=== PATIENT | female | born 1965 | race Caucasian/White ===

== ENCOUNTER 2020-05-29 07:02 | Outpatient (CLI) | payer BC, SELFPAY ==
[2020-05-29 08:10] LABS: Alanine Aminotransferase 35 U/L (14-59); Aspartate Amino Transferase 26 U/L (15-37)
== END 2020-05-29 07:03 | disposition home or self-care (01) ==
PROVIDERS: PCP Internal Medicine; Visit Provider Internal Medicine
DX: Z79.899 Other long term (current) drug therapy (principal)
CPT/HCPCS: 36415; 84450; 84460

== ENCOUNTER 2021-10-10 07:09 | Outpatient (CLI) | payer BC, SELFPAY ==
--- NOTE | ~2021-10-10 | CT_ITS ---
EXAMINATION: CT abdomen pelvis w con DATE: 10/10/2021 07:52 INDICATION: Intermittent abdominal pain and bloating. Prior cholecystectomy and hysterectomy. TECHNIQUE: Computed tomography (CT) of the abdomen and pelvis was performed with 100 cc Omnipaque 350 intravenous contrast. The dose-length product was 717.48 mGy-cm. Automated exposure control and iter ative reconstruction technique were employed. COMPARISON: CT dated 03/29/2010. FINDINGS: Lung bases are unremarkable. No significant pleural or pericardial effusion. Heart size is normal. No significant vascular abnormality. No lymphadenopathy. Fatty infiltration of the liver. There are cholecystectomy clips. There is an enlarging 6.5 cm right renal cyst at the upper pole. No hydronephrosis. Left kidney is normal. Nonobstructive bowel gas karen gui. No free air or free fluid. Uterus is surgically absent. Moderate lumbar spondylosis. No acute os seous abnormality. IMPRESSION: 1. No findings to account for patient's symptoms. No acute abnormality. Reviewed, dictated and finalized at location B.
== END 2021-10-10 07:10 | disposition home or self-care (01) ==
LOC: CHSIMG 07:11
PROVIDERS: PCP Internal Medicine; Visit Provider Internal Medicine
DX: R10.9 Unspecified abdominal pain (principal)
CPT/HCPCS: 74177; Q9967

== ENCOUNTER 2021-12-02 15:57 | Emergency (ER) | payer BC, SELFPAY ==
--- NOTE | ~2021-12-02 | XR_ITS ---
EXAM: XR hand LT min 3V HISTORY: pain and swelling after fall COMPARISON: None available FINDINGS: Normal mineralization. No fracture or dislocation. No lytic or blastic lesion. Mild degene rative change. No erosion or periosteal change. Soft tissues within normal limits. IMPRESSION: No acute osseous finding in the left hand. Reviewed, dictated and finalized at location K.
--- NOTE | ~2021-12-02 | CT_ITS ---
EXAMINATION: CT facial bones wo con DATE: 12/02/2021 18:20 INDICATION: pain after fall . TECHNIQUE: Computed tomography (CT) of the facial bones and maxillofacial region was performed withou t intravenous contrast. Automated exposure control and iterative reconstruction technique were employ ed. The dose-length product was 605.33 mGy-cm. COMPARISON: None. FINDINGS: Soft Tissues: Soft tissue thickening over the bridge of the nose, no other significant superficial s oft tissue swelling. Facial bones: Comminuted impacted nasal bone fractures. No other fractures detected.. No lytic or bl astic process. Eyes: The globes are intact. The soft tissue planes of the orbits are maintained. Paranasal Sinuses: The visualized aerated spaces are clear. Foreign Bodies: No radiopaque foreign bodies. Other Findings: None. IMPRESSION: Presumed acute comminuted, impacted nasal bone fractures. Reviewed, dictated and finalized at location K.
--- NOTE | ~2021-12-02 | XR_ITS ---
EXAM: XR knee LT 2V HISTORY: pain and swelling after fall COMPARISON: None available FINDINGS: Normal mineralization. No fracture or dislocation. No lytic or blastic lesion. Joint space s maintained. No erosion or periosteal change. Soft tissues within normal limits. Small left knee jacqueline nt effusion. IMPRESSION: No acute osseous finding in the left knee. Reviewed, dictated and finalized at location K.
--- NOTE | ~2021-12-02 | CT_ITS ---
EXAMINATION: CT brain wo con DATE: 12/02/2021 18:19 INDICATION: pain after fall TECHNIQUE: Computed tomography (CT) of the head was performed without intravenous contrast. The mA wa s adjusted according to patient size. Iterative reconstruction technique was employed. The dose-lengt h product was 605.33 mGy-cm. COMPARISON: None FINDINGS: No acute intracranial hemorrhage or extra-axial fluid collection. No hydrocephalus, mass, or herniation. No acute ischemic infarct. Unremarkable dural venous sinus attenuation. Comminuted impacted nasal bone fractures of uncertain age, no other acute osseous abnormality. The aerated spaces are clear. Mild chronic white matter change. Mild intracranial arterial calcifications. IMPRESSION: No acute intracranial process. Presumed acute impacted nasal bone fracture. Reviewed, dictated and finalized at location K.
[2021-12-02 17:30] VITALS: BP 131/86; PULSE 86; RESP 20; TEMP 36.6; O2SAT 98
--- NOTE | 2021-12-02 18:09 | ED.GENADULT ---
HPI - General Adult General Chief complaint: Fall Stated complaint: fell-knee, hand, nasal pain Source: patient and family Mode of arrival: ambulatory Limitations: no limitations History of Present Illness HPI narrative: Pablo is a 55F that tripped over a tricycle before coming to the emergency department. She fell on her left wrist, left knee and face. There was no LOC and she denies any neck pain. There were no other injuries. Review of Systems Constitutional: Constitutional: Reports no additional constitutional complaints Eyes: Eyes: Reports no additional eye complaints ENT: Reports system reviewed and no additional complaints, except as documented Cardiovascular: Cardiovascular: Reports no additional cardiovascular complaints Respiratory: Respiratory: Reports no additional respiratory complaints Gastrointestinal: Gastrointestinal: Reports no additional gastrointestinal complaints Genitourinary: Genitourinary: Reports no additional female genitourinary complaints Musculoskeletal: Musculoskeletal: Reports as per HPI Integumentary/Breasts: Skin/Breast: Reports system reviewed and no additional complaints, except as docu Neurologic: Reports system reviewed and no additional complaints, except as documented Psychiatric: Psychiatric: Reports no additional psychiatric complaints Endocrine: Endocrine: Reports no additional endocrine complaints Hematologic/Lymphatic: Hematologic/Lymphatic: Reports no additional hematologic/lymphatic complaints Allergic/Immunologic: Allergic/Immunologic: Reports no additional allergic/immunologic complaints Exam Const: General: no acute distress and alert Orientation/consciousness: patient oriented x3 Limitations: No altered mental status HENMT: Other: A few small shallow abrasions on her forehead and cheeks. No crepitus. Eyes: Conjunctivae: conjunctivae normal Pupils: Equal, round and reactive pupils present Neck: Neck: normal visual inspection Chest: Chest palpation & inspection: normal inspection of the chest Resp: Effort & Inspection: normal respiratory effort Cardio: Rate: regular rate GI: Inspection: non-distended GI Palp: Yes Soft to palpation, No Tenderness to palpation present (GI) and No Guarding due to palpation present (GI) : General: Yes no CVA tenderness Skin: General skin exam: normal color Rashes: no rashes Neuro: General: patient oriented x3, moves all extremities and no focal motor deficits Extrem: Other: Quarter sized abrasion on the left knee but no varus/valgus laxity, negative anterior/posterior drawer test Left hand was TTP in the hand but the wrist had a fair amount of bruising Psych: Mental Status: mental status grossly normal Course Course Emergency Course: Given Tylenol for pain EXAMINATION: CT facial bones wo con DATE: 12/02/2021 18:20 INDICATION: pain after fall . TECHNIQUE: Computed tomography (CT) of the facial bones and maxillofacial region was performed without intravenous contrast. Automated exposure control and iterative reconstruction technique were employed. The dose-length product was 605.33 mGy-cm. COMPARISON: None. FINDINGS: Soft Tissues: Soft tissue thickening over the bridge of the nose, no other significant superficial soft tissue swelling. Facial bones: Comminuted impacted nasal bone fractures. No other fractures detected.. No lytic or blastic process. Eyes: The globes are intact. The soft tissue planes of the orbits are maintained. Paranasal Sinuses: The visualized aerated spaces are clear. Foreign Bodies: No radiopaque foreign bodies. Other Findings: None. IMPRESSION: Presumed acute comminuted, impacted nasal bone fractures. EXAMINATION: CT brain wo con DATE: 12/02/2021 18:19 INDICATION: pain after fall TECHNIQUE: Computed tomography (CT) of the head was performed without intravenous contrast. The mA was adjusted according to patient size. Iterative reconstruction technique was employed. The dose-length prod
[2021-12-02] MEDS: ACETAMINOPHEN 500 MG TABLET 1000 MG PO (18:39)
[2021-12-02 18:41] VITALS: BP 127/83; PULSE 85; RESP 18; TEMP 36.6; O2SAT 100
== END 2021-12-02 18:50 | disposition home or self-care (01) ==
PROVIDERS: Emergency Provider Family Medicine; PCP Internal Medicine
DX: S02.2XXA Fracture of nasal bones, initial encounter for closed fracture (principal); W01.0XXA Fall on same level from slipping, tripping and stumbling without subsequent striking against object, initial encounter
CPT/HCPCS: 70450; 70486; 73130; 73560; 99284

== ENCOUNTER 2022-03-28 07:17 | Outpatient (CLI) | payer BC, SELFPAY ==
--- NOTE | ~2022-03-28 | MM_ITS ---
EXAMINATION: MM screening radha BI w danita HISTORY: Screening mammogram TECHNIQUE: Craniocaudal and mediolateral oblique 3-D tomosynthesis images were obtained and synthetic 2-D images were generated. CAD analysis was submitted and interpreted. COMPARISON: 05/10/2019 diagnostic right mammogram and limited right breast ultrasound examination 12/04/2016, 07/07/2013 bilateral screening mammogram examinations BREAST PARENCHYMAL COMPOSITION: The breasts are almost entirely fatty. FINDINGS: There is no evidence of suspicious mass, calcification, or architectural distortion to sugg est malignancy in either breast. There has been no suspicious interval change. IMPRESSION: 1. No mammographic evidence of malignancy. 2. Recommend routine screening mammography in one year. BI-RADS Category 1: Negative Reviewed, dictated and finalized at location B.
== END 2022-03-28 07:18 | disposition home or self-care (01) ==
LOC: CHSIMG 07:20
PROVIDERS: PCP Internal Medicine; Visit Provider Internal Medicine
DX: Z12.31 Encounter for screening mammogram for malignant neoplasm of breast (principal)
CPT/HCPCS: 77063; 77067

== ENCOUNTER → 2022-05-02 08:13 | Outpatient (CLI) | payer BC, SELFPAY ==
--- NOTE | ~2022-05-02 | MR_ITS ---
EXAMINATION: MR knee LT wo con DATE: 05/02/2022 08:53 INDICATION: Anterior left knee pain TECHNIQUE: Magnetic resonance imaging (MRI) of the left knee was performed without intravenous contra st. Sequences included coronal PD-weighted FSE, coronal PD-weighted FS FSE, sagittal T2-weighted FSE , sagittal PD-weighted FS FSE and axial PD weighted fat saturated FSE. COMPARISON: None. FINDINGS: Medial compartment: Medial meniscus is normal. Mild partial-thickness cartilage loss with subtle chondral surface regular ity along the anterior to central weightbearing medial femoral condyle. Mild partial-thickness cartil age loss with smooth chondral surface along the medial tibial plateau. Lateral compartment: Lateral meniscus is normal. Mild partial-thickness cartilage loss along the lateral femoral condyle w ith subtle chondral surface regularity anteriorly. Mild partial-thickness cartilage loss with smooth chondral surface along the lateral tibial plateau. Patellofemoral compartment: Region of full/near full-thickness cartilage loss at the central aspect of the patellar apical ridge and lateral patellar facet with a couple tiny foci of mild subarticular edema-like signal change. Par tial-thickness cartilage loss without degenerative subchondral changes at the central aspect of the m edial trochlea and trochlear groove. Diffuse partial thickness cartilage loss with smooth chondral mckenzie rface along the lateral trochlea. Ligaments and tendons: Posterior cruciate ligament is normal. The anterior cruciate ligament demonstrates a normal angle rel ative to Blumensaat line. It appears thickened with small intrasubstance ganglion cysts and increased intrasubstance signal surrounding intact appearing linear fibers with a celery stalk appearance. Intrasubstance ganglion cyst extending along a longitudinal split tear of the posterior aspect of the proximal medial collateral ligament. The fibular collateral ligament complex is normal. The extensor mechanism is normal. The visualized medial and lateral hamstring tendons as well as the iliotibial b and are normal. Fluid: Small left mild joint effusion. No loose osteochondral bodies identified. Small Juan's cyst measurin g 4.2 x 1.8 x 0.8 cm. Osseous/other: Bone alignment is normal. Normal marrow aside from the previous noted mild reticular edema-like signa l change at the patella. No fracture or pathologic marrow replacing process. IMPRESSION: 1. 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 2. Mucoid degeneration of the anterior cruciate ligament without discrete tear. Correlate with physic al exam to assess for degree of residual functional integrity. 3. Intrasubstance ganglion cyst extending along a longitudinal split tear at the posterior aspect of the proximal medial collateral ligament. 4. Small left knee joint effusion with small Juan's cyst. Reviewed, dictated and finalized at location A. IMPRESSION: 1. Mild tricompartmental osteoarthritis with high-grade chondral malacia the pa tella and moderate grade chondromalacia at the trochlea and at both sides of th e medial and lateral compartments. 2. Mucoid degeneration of the anterior cruciate ligament without discrete tear. Correlate with physical exam to assess for degree of residual functional integ rity. 3. Intrasubstance ganglion cyst extending along a longitudinal split tear at th e posterior aspect of the proximal medial collateral ligament. 4. Small left knee joint effusion with small Juan's cyst.
== END ==
PROVIDERS: PCP Internal Medicine; Visit Provider Internal Medicine
DX: M25.562 Pain in left knee (principal); M17.12 Unilateral primary osteoarthritis, left knee; M94.262 Chondromalacia, left knee; M67.462 Ganglion, left knee; S83.412A Sprain of medial collateral ligament of left knee, initial encounter; M25.462 Effusion, left knee; M71.22 Synovial cyst of popliteal space [Baker], left knee
CPT/HCPCS: 73721

== ENCOUNTER 2022-05-22 08:19 | Outpatient (RCR) | payer BC, SELFPAY ==
--- NOTE | 2022-05-22 09:55 | PTOPEVAL1 ---
Assessment and note entered by JT File, PT Evaluation Information Assessment Status Evaluation Diagnosis L anterior knee pain, PF OA, lateral meniscus tear , IT band tendonitis Onset 11/25/21 Subjective Information patient reports she has been having pain in the L knee since a fall back in november of this year. she reports she landed on the outside of her L knee. she reports since then it has progressively gotten worse. she reports she had an MRI that found arthritis, PF OA, IT band tendonitis, and a lateral meniscus tear among other things. she reports she has increased pain with standing or walking for an extended period of time (1 hour or more). 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 she reports thus far she has had tried arthritis meds and an injection to the L knee. she reports since her injection last friday she has noticed some improvement. Reported Pain Level Pain Score 2: Self Report Assessment PT Clinical Summary mrs. noel presents to skilled PT services for evaluation and treatment of L knee pain following a fall back in november of this year. she presents this date with signs and symptoms of knee/PF OA and ITB/hamstrings tendonitis. she displays generalized LE weakness, abnormal squat mechanics, and decreased activity endurance/tolerance. she would do well to attend skilled PT to improve her objective/funcitonal deficits and progress towards a return to her prior level funcitonal activity performance and quality of life. Plan of Care Interventions Electrical Stimulation,Gait Training,Hot Pack/Cold Pack,Manual Therapy,Neuro Re-education,Patient/ Caregiver Educati,Therapeutic Activities, Therapeutic Exercise PT Services Indicated Yes Treatment Frequency and 2x weekly for 10 visits Duration These treatments will address the objective and functional deficits as defined above. The patient will be advanced safely and appropriately in order for the patient to progress towards his/her prior level of function. Additional exercises will be introduced and as well as a comprehensive home exercise program upon discharge, if needed, ?to ensure carryover of functional gains achieved in the clinic. This treatment plan has been reviewed and agreement upon by the patient.
== END 2022-06-24 23:59 | disposition home or self-care (01) ==
LOC: CHSPT 08:19
PROVIDERS: Visit Provider Orthopaedic Surgery
DX: M17.12 Unilateral primary osteoarthritis, left knee (principal)
CPT/HCPCS: 97110; 97140; 97161; 97530

== ENCOUNTER → 2022-05-27 08:40 | Outpatient (CLI) | payer BC, SELFPAY ==
--- NOTE | ~2022-05-27 | DEXA_ITS ---
Bone Density Report Name: ARTEM ANTON Age: 56 Sex: Female Ethnicity: White Date of : 1965 Indication: postmenopausal; screening for osteoporosis; hysterectomy; rheumatoid arthritis; Referring Provider: Luigi Jeffries Study: Bone densitometry was performed. Exam Date: May 27, 2022 Accession number: [id number] Bone Density: Region BMD T-score Z-score Classification AP Spine (L1-L4) 0.950 -0.9 0.4 Normal Femoral Neck (Left) 0.735 -1.0 0.1 Normal Total Hip (Left) 0.842 -0.8 0.0 Normal Femoral Neck (Right) 0.745 -0.9 0.2 Normal Total Hip (Right) 0.830 -0.9 -0.1 Normal Total Hip Mean 0.836 -0.9 -0.1 Normal World Health Organization criteria for BMD impression classify patients as: Normal (T-score at or above -1.0), Osteopenia (T-score between -1.0 and -2.5), or Osteoporosis (T-score at or below -2.5). 10-year Fracture Risk: FRAX not reported because: All T-scores for Spine Total, Hip Total, Femoral Neck at or above -1.0 Treated for osteoporosis Clinical Information Provided by Patient: Has rheumatoid arthritis Is being treated for osteoporosis Has used the following medications: Actonel (i.e. risedronate), Vitamin D, Calcium Has the following medical conditions: Hysterectomy Patient maximum height was 65 Menopause Age: 32 Drinks caffeinated beverages Onset of menses at age 11 Number of children 4 Impression: The patient has normal bone mass. Discussion: It is important to ask patients whether they are taking their medications and to encourage continued and appropriate compliance with their osteoporosis therapies to reduce fracture risk. It is also important to review their risk factors and encourage appropriate calcium and vitamin D intakes, exercise, fall prevention and other lifestyle measures. Follow-Up: Consider a repeat BMD and Vertebral Fracture Assessment (VFA) exam in 2 years or sooner if medically necessary, to reassess this patient's status. Reported by: SHABBIR on 05/27/2022 8:59:00 AM. Reviewed, dictated and finalized at location A. LAISHA
== END ==
PROVIDERS: PCP Internal Medicine; Visit Provider Internal Medicine
DX: Z78.0 Asymptomatic menopausal state (principal)
CPT/HCPCS: 77080

== ENCOUNTER 2023-04-01 07:22 | Outpatient (CLI) | payer BC, SELFPAY ==
--- NOTE | ~2023-04-01 | MM_ITS ---
EXAMINATION: MM screening radha BI w danita HISTORY: Screening mammogram TECHNIQUE: Craniocaudal and mediolateral oblique 3-D tomosynthesis images were obtained and synthetic 2-D images were generated. CAD analysis was submitted and interpreted. COMPARISON: 03/28/2022 bilateral screening mammogram 05/10/2019 diagnostic right mammogram and limited right breast ultrasound 04/22/2019 bilateral screening mammogram BREAST PARENCHYMAL COMPOSITION: The breasts are almost entirely fatty. FINDINGS: There is no evidence of suspicious mass, calcification, or architectural distortion to sugg est malignancy in either breast. There has been no suspicious interval change. IMPRESSION: 1. No mammographic evidence of malignancy. 2. Recommend routine screening mammography in one year. BI-RADS Category 1: Negative Reviewed, dictated and finalized at location A.
== END 2023-04-01 07:23 | disposition home or self-care (01) ==
LOC: CHSIMG 07:25
PROVIDERS: PCP Internal Medicine; Visit Provider Internal Medicine
DX: Z12.31 Encounter for screening mammogram for malignant neoplasm of breast (principal)
CPT/HCPCS: 77063; 77067

== ENCOUNTER 2023-06-16 00:17 | Day surgery (SDC) | payer BC, SELFPAY ==
[2023-06-03 16:43] VITALS: BMI 32.4
--- NOTE | 2023-06-13 10:54 | SUR.PREOP ---
Patient called regarding upcoming procedure. Reviewed preop instructions, appointment times, and procedure prep.
[2023-06-16 11:20] VITALS: BP 130/77; PULSE 94; RESP 18; TEMP 36.8; O2SAT 100; BMI 31.6
--- NOTE | 2023-06-16 11:25 | P.PNAN_ITS ---
Anes - Initial Pre Proc Eval Procedure: Operation Date: 06/16/23 12:30 Proposed Procedures p Colonoscopy - Emerson Manriquez MD Date/Time: 06/16/23 11:25 Surgeon: Emerson Manriquez MD Pre Op Diagnosis: change in bowel habits, constipation unspecified Patient Data Age: 57 Gender: F Height: 1.65 m Weight: 86.1 kg Last Vital Signs Temp 98.3 F 06/16/23 11:20 Pulse 94 06/16/23 11:20 Resp 18 06/16/23 11:20 BP 130/77 06/16/23 11:20 Pulse Ox 100 06/16/23 11:20 O2 Del Method Room Air 06/16/23 11:20 Allergies Allergy/AdvReac Type Severity Reaction Status Date / Time tramadol AdvReac Mild Nausea Verified 06/16/23 11:18 Home Medications Medication Instructions Recorded Confirmed Type atorvastatin 10 mg tablet 10 mg PO DAILY 05/19/23 06/16/23 History cyclobenzaprine 10 mg tablet 10 mg PO TID PRN Spasms 05/19/23 06/16/23 History famotidine 20 mg tablet (Pepcid) 20 mg PO QHS 1 month #30 tabs 05/19/23 06/16/23 Rx pantoprazole 40 mg tablet,delayed 40 mg PO DAILY 05/19/23 06/16/23 History release Adults Multivitamin 1 tab-cap PO DAILY 06/03/23 06/16/23 History Vitamin D3 1 cap PO DAILY 06/03/23 06/16/23 History calcium carbonate 600 mg calcium 600 mg PO DAILY 06/03/23 06/16/23 History (1,500 mg) tablet (Calcium) Patient hx anesthesia problems: none Family hx anesthesia problems: none Results Review: All pre-operative results and documents have been reviewed as part of the pre- operative evaluation. [facility] Past Medical History Medical History (Updated 05/19/23 @ 09:05 by CHAI Godinez) Change in bowel habits Constipation GERD (gastroesophageal reflux disease) Obese Surgical History Surgical History (Updated 05/19/23 @ 08:20 by Leah Christopher MA) H/O: hysterectomy History of cholecystectomy Family History Family History (Updated 05/19/23 @ 08:20 by Leah Christopher MA) Father Skin cancer Mother Hypertension Hyperlipidemia Renal carcinoma Social History Social History (Updated 05/19/23 @ 08:29 by Leah Christopher MA) Smoking status: Never smoker Second hand tobacco smoke exposure: No Alcohol intake: current Substance use: never Substance use type: does not use Living arrangements: with family Spiritual care concerns: No Anes - Eval Final PreProcedure Day of Procedure 06/16/23 11:25 Patient weight: obese Heart: regular rate and rhythm Lungs: clear to auscultation Airway: Mallampati scale class II Neurological: alert and oriented Last oral intake: >/= 8 hours ASA classification: II Emergent: no Anesthetic plan: proceed Anesthesia type and monitoring: general GIVS and standard monitoring Results Review: All pre-operative results and documents have been reviewed as part of the pre- operative evaluation. Informed Consent: The patient's anesthetic plan and its attendant risks and benefits were discussed with the patient/family/POA. Questions were solicited and answers provided to the satisfaction of the patient/family/POA.
[2023-06-16] MEDS: LACTATED RINGERS 1,000 ML 150 ML IV CONT (11:32)
--- NOTE | 2023-06-16 11:41 | WPDHPUPDATE1 ---
History and Physical Update Update Date/Time: 06/16/23 11:41 History and Physical has been reviewed, including an updated exam of the patient. There are NO changes in the patient's condition. Risks, benefits, and alternatives have been discussed and questions answered. Patient agrees to proceed with procedure.
[2023-06-16 11:58] VITALS: BP 110/69; PULSE 98; RESP 25; O2SAT 98
[2023-06-16 12:08] VITALS: BP 118/73; PULSE 90; RESP 22; O2SAT 99
[2023-06-16 12:18] VITALS: BP 122/84; PULSE 84; RESP 23; O2SAT 100
== END 2023-06-16 12:26 | disposition home or self-care (01) ==
PROVIDERS: PCP Internal Medicine; Visit Provider Internal Medicine Gastroenterology
PROC: 0DJD8ZZ Inspection of Lower Intestinal Tract, Via Natural or Artificial Opening Endoscopic (ICD-10-PCS; CPT 45378; principal; 2023-06-16 12:30)
DX: Z12.11 Encounter for screening for malignant neoplasm of colon (principal); D12.3 Benign neoplasm of transverse colon; K64.8 Other hemorrhoids; K21.9 Gastro-esophageal reflux disease without esophagitis; E78.00 Pure hypercholesterolemia, unspecified; K58.1 Irritable bowel syndrome with constipation; E66.9 Obesity, unspecified; Z68.31 Body mass index [BMI] 31.0-31.9, adult; Z90.49 Acquired absence of other specified parts of digestive tract; Z84.0 Family history of diseases of the skin and subcutaneous tissue; Z80.51 Family history of malignant neoplasm of kidney
CPT/HCPCS: 45380; 88305; J2704; J7120

== ENCOUNTER 2023-08-04 00:34 | Day surgery (SDC) | payer BC, SELFPAY ==
--- NOTE | 2023-08-01 09:57 | SUR.PREOP ---
Patient called regarding upcoming procedure. Reviewed preop instructions, appointment times, and procedure prep.
[2023-08-01 11:43] VITALS: BMI 32.4
--- NOTE | 2023-08-03 11:12 | PM.HPGS ---
History of Present Illness History of Present Illness Consent: Risks, benefits, and alternatives have been discussed and questions answered. Patient agrees to proceed with procedure. Chief complaint: GERD,Abdominal distension (gaseous) Narrative: Pablo Alvarado is a 57 year old female With long history of acid reflux which has been symptomatic despite aggressive attempts of therapy. She has had previous endoscopies conferring acid reflux. She has taken omeprazole in the past without benefit. She frequently has breakthrough of heartburn and also at times will have what she calls gurgling and regurgitation if she lies on her right side at night. She has been switched from pantoprazole to AcipHex 20 mg b.i.d. Review of Systems Review of Systems: All systems reviewed & are unremarkable except as noted in HPI and below PMFSH Past Medical History Medical History Bloating symptom Change in bowel habits Constipation GERD (gastroesophageal reflux disease) Obese Surgical History Surgical History H/O: hysterectomy History of cholecystectomy Family History Family History Father Skin cancer Mother Hypertension Hyperlipidemia Renal carcinoma Social History Social History Smoking status: Never smoker Second hand tobacco smoke exposure: No Alcohol intake: current Substance use: never Substance use type: does not use Living arrangements: other Additional living arrangements comments: with sp Spiritual care concerns: No Meds Home Medications and Allergies Home Medications Medication Instructions Recorded Confirmed Type atorvastatin 10 mg tablet 10 mg PO DAILY 05/19/23 08/04/23 History cyclobenzaprine 10 mg tablet 10 mg PO TID PRN Spasms 05/19/23 08/04/23 History famotidine 20 mg tablet (Pepcid) 20 mg PO QHS 1 month #30 tabs 05/19/23 08/04/23 Rx Adults Multivitamin 1 tab-cap PO DAILY 06/03/23 08/04/23 History Vitamin D3 1 cap PO DAILY 06/03/23 08/04/23 History calcium carbonate 600 mg calcium 600 mg PO DAILY 06/03/23 08/04/23 History (1,500 mg) tablet (Calcium) lactulose 20 gram/30 mL oral 20 g (30 mL) PO BID PRN 07/15/23 08/04/23 Rx solution constipation #1,200 mL lubiprostone 24 mcg capsule 24 mcg PO BID 1 month #60 caps 08/01/23 08/04/23 Rx rabeprazole 20 mg tablet,delayed 20 mg PO BID 1 month #60 tabs 08/01/23 08/04/23 Rx release (AcipHex) Allergies Allergy/AdvReac Type Severity Reaction Status Date / Time tramadol AdvReac Mild Nausea Verified 08/04/23 10:35 Exam Const: General: alert Orientation/consciousness: patient oriented x3 Resp: Auscultation: clear to auscultation bilaterally Cardio: Rhythm: regular rhythm GI: GI Palp: Yes Soft to palpation and No Tenderness to palpation present (GI) Neuro: General: patient oriented x3 Assessment and Plan Assessment and plan (1) GERD (gastroesophageal reflux disease): Code(s): K21.9 - Gastro-esophageal reflux disease without esophagitis Status: Acute Assessment and Plan: EGD with possible biopsy or dilatation or cautery.
[2023-08-04 10:38] VITALS: BP 129/78; PULSE 93; RESP 16; TEMP 36.6; O2SAT 99
[2023-08-04] MEDS: LACTATED RINGERS 1,000 ML 150 ML IV CONT (10:42)
--- NOTE | 2023-08-04 11:09 | WPDANESEPPF ---
Anes - Initial Pre Proc Eval Procedure: Operation Date: 08/04/23 11:30 Proposed Procedures p Esophagogastroduodenoscopy - Luke Rees MD Date/Time: 08/04/23 11:09 Surgeon: Luke Rees MD Pre Op Diagnosis: GERD,Abdominal distension (gaseous) Patient Data Age: 57 Gender: F Height: 1.65 m Weight: 87.7 kg Last Vital Signs Temp 98 F 08/04/23 10:38 Pulse 93 08/04/23 10:38 Resp 16 08/04/23 10:38 BP 129/78 08/04/23 10:38 Pulse Ox 99 08/04/23 10:38 O2 Del Method Room Air 08/04/23 10:38 Allergies Allergy/AdvReac Type Severity Reaction Status Date / Time tramadol AdvReac Mild Nausea Verified 08/04/23 10:35 Home Medications Medication Instructions Recorded Confirmed Type atorvastatin 10 mg tablet 10 mg PO DAILY 05/19/23 08/04/23 History cyclobenzaprine 10 mg tablet 10 mg PO TID PRN Spasms 05/19/23 08/04/23 History famotidine 20 mg tablet (Pepcid) 20 mg PO QHS 1 month #30 tabs 05/19/23 08/04/23 Rx Adults Multivitamin 1 tab-cap PO DAILY 06/03/23 08/04/23 History Vitamin D3 1 cap PO DAILY 06/03/23 08/04/23 History calcium carbonate 600 mg calcium 600 mg PO DAILY 06/03/23 08/04/23 History (1,500 mg) tablet (Calcium) lactulose 20 gram/30 mL oral 20 g (30 mL) PO BID PRN 07/15/23 08/04/23 Rx solution constipation #1,200 mL lubiprostone 24 mcg capsule 24 mcg PO BID 1 month #60 caps 08/01/23 08/04/23 Rx rabeprazole 20 mg tablet,delayed 20 mg PO BID 1 month #60 tabs 08/01/23 08/04/23 Rx release (AcipHex) Patient hx anesthesia problems: none Family hx anesthesia problems: none Results Review: All pre-operative results and documents have been reviewed as part of the pre-operative evaluation. [facility] Past Medical History Medical History (Updated 07/15/23 @ 09:04 by CHAI Godinez) Bloating symptom Change in bowel habits Constipation GERD (gastroesophageal reflux disease) Obese Surgical History Surgical History H/O: hysterectomy History of cholecystectomy Family History Family History Father Skin cancer Mother Hypertension Hyperlipidemia Renal carcinoma Social History Social History Smoking status: Never smoker Second hand tobacco smoke exposure: No Alcohol intake: current Substance use: never Substance use type: does not use Living arrangements: other Additional living arrangements comments: with sp Spiritual care concerns: No Anes - Eval Final PreProcedure Day of Procedure 08/04/23 11:09 Patient weight: obese Heart: regular rate and rhythm Lungs: clear to auscultation Airway: Mallampati scale class II Neurological: alert and oriented Last oral intake: >/= 8 hours ASA classification: II Emergent: no Anesthetic plan: proceed Anesthesia type and monitoring: general GIVS and standard monitoring Results Review: All pre-operative results and documents have been reviewed as part of the pre-operative evaluation. Informed Consent: The patient's anesthetic plan and its attendant risks and benefits were discussed with the patient/family/POA. Questions were solicited and answers provided to the satisfaction of the patient/family/POA.
[2023-08-04 12:04] VITALS: BP 126/84; PULSE 85; RESP 24; O2SAT 99
[2023-08-04 12:14] VITALS: BP 131/84; PULSE 84; RESP 23; O2SAT 100
[2023-08-04 12:24] VITALS: BP 139/90; PULSE 84; RESP 18; O2SAT 100
== END 2023-08-04 12:41 | disposition home or self-care (01) ==
PROVIDERS: PCP Internal Medicine; Visit Provider Internal Medicine Gastroenterology
PROC: 0DJ08ZZ Inspection of Upper Intestinal Tract, Via Natural or Artificial Opening Endoscopic (ICD-10-PCS; CPT 43235; principal; 2023-08-04 11:30)
DX: K21.00 Gastro-esophageal reflux disease with esophagitis, without bleeding (principal); K44.9 Diaphragmatic hernia without obstruction or gangrene; E66.9 Obesity, unspecified; Z68.32 Body mass index [BMI] 32.0-32.9, adult; Z90.49 Acquired absence of other specified parts of digestive tract; Z84.0 Family history of diseases of the skin and subcutaneous tissue; Z80.51 Family history of malignant neoplasm of kidney
CPT/HCPCS: 43239; 88305; J2704; J7120

== ENCOUNTER 2023-09-11 08:38 | Outpatient (CLI) | payer BC, SELFPAY ==
--- NOTE | ~2023-09-11 | XR_ITS ---
XR UGIAC wo kub DATE: 09/11/2023 09:33 INDICATION: Reflux, heartburn TECHNIQUE: Air-contrast upper gastrointestinal series 98 images Total DAP 22.54 1.5 minutes fluoroscopy time COMPARISON: None FINDINGS: There is normal deglutition and esophageal peristalsis. No stricture, mucosal fold thickeni ng, erosion, ulceration or intraluminal mass lesion of the esophagus, stomach or duodenum is detected . Small sliding hiatal hernia with mild spontaneous gastroesophageal reflux. Proximal and mid small bowel mucosal pattern is normal. IMPRESSION: Small sliding hiatal hernia with mild spontaneous gastroesophageal reflux; otherwise nega tive Reviewed, dictated and finalized at [facility]. Reviewed, dictated and finalized at location D. [employer] SUPERVIS[employer] IMPRESSION: Small sliding hiatal hernia with mild spontaneous gastroesophageal reflux; otherwise negative
== END 2023-09-11 08:39 | disposition home or self-care (01) ==
LOC: CHSIMG 08:40
PROVIDERS: PCP Internal Medicine; Visit Provider Surgery
DX: K44.9 Diaphragmatic hernia without obstruction or gangrene (principal); K21.9 Gastro-esophageal reflux disease without esophagitis
CPT/HCPCS: 74246

== ENCOUNTER 2023-11-04 07:55 | Outpatient (CLI) | payer BC, SELFPAY ==
--- NOTE | 2023-11-04 08:28 | ECG_ITS ---
Measurements Intervals [place] Rate: 79 P: 11 OH: 121 QRS: 9 QRSD: 101 T: -9 QT: 358 QTc: 392 Interpretive Statements SINUS RHYTHM NORMAL ECG SEE SCANNED COPY FOR SIGNATURE MTDD
== END 2023-11-04 07:56 | disposition home or self-care (01) ==
LOC: ANHSURGERY 08:03
PROVIDERS: PCP Internal Medicine; Visit Provider Surgery
DX: Z01.818 Encounter for other preprocedural examination (principal); E78.00 Pure hypercholesterolemia, unspecified; K44.9 Diaphragmatic hernia without obstruction or gangrene
CPT/HCPCS: 36415; 93005

== ENCOUNTER 2023-11-12 00:04 | Day surgery (SDC) | payer BC, SELFPAY ==
[2023-10-30 11:43] VITALS: BMI 32.4
--- NOTE | 2023-10-30 11:50 | SUR.PREOP ---
Addendum entered by Marisa Gonzalez RN 10/31/23 15:25: PLEASE DO NOT TAKE ANY OF YOUR ROUTINE MEDS MORNING OF SURGERY. THEY WILL BE GIVEN ONCE YOU ARE ADMITTED TO THE FLOOR AFTER SURGERY. Original Note: Report to the Outpatient Waiting Room, entrance under the green pavilion located off [facility], at time 0600 on date 11/12/2023. Planned Procedure Time: 0730. Time changes happen often and if your time is changed the preop area will call you the afternoon before. - You and your visitor will be asked to self-screen and do not enter if you have any COVID symptoms. - A mask is optional within the hospital at this time. Patients may have clear liquids (water, carbonated beverages, clear teas, apple juice) until 3 hours prior to surgery with a maximum of 20 ounces. - No food from midnight until time of surgery DO NOT STOP ANY OF YOUR OTHER PRESCRIPTION MEDICATIONS PRIOR TO SURGERY ?EXCEPT THE FOLLOWING Medications to discontinue per physician Vitamins and Supplements Date to take last dose 11/09/2023 Please no make-up, nail albanian, hairspray, perfume, deodorant, or body powder the day of surgery. No jewelry (including any body piercings) or valuables the day of surgery, leave them at home. Please take a shower or bath the night before, or the morning of, surgery with an antibacterial soap. Wear comfortable, loose fitting clothing. Children are encouraged to wear pajamas. - Jewelry must be removed prior to entering the operating room. Rings and piercings that are not removed may be cut off. - The hospital will not accept responsibility for valuables. - Please leave all valuables, including medications, at home the day of surgery. If you are going home after surgery, a licensed sales warehouse driver must drive you home. - NO public transportation without another adult if you receive anesthesia. - We recommend that an adult stay with you for 24 hours following discharge. - We also recommend that you do not drive, make important decision, drink alcoholic beverages, or take any drugs that were not prescribed by your health care provider for at least 24 hours after your discharge time. Follow any additional instructions given to you from your surgeon. If you or anyone in your household have experienced Covid symptoms in the past week, please notify your surgeon or the nurse liaison at the phone number below for possible testing. Telephone instructions given to Pablo Alvarado and asked if any additional questions and then verbalized understanding. Patient advised to call surgeon office or pre surgery nurse liaison [phone] if any additional questions.
[2023-11-12] VITALS (14 sets, daily range): BP systolic 110–152; BP diastolic 67–92; PULSE 79–101; RESP 12–16; TEMP 36.1–36.9; O2SAT 97–100; BMI 32.3
[2023-11-12] MEDS: LACTATED RINGERS 1,000 ML 30 ML IV CONT ×2 (07:10→10:15)
[2023-11-12] MEDS: ACETAMINOPHEN 500 MG TABLET 1000 MG PO (07:23)
[2023-11-12] MEDS: KETOROLAC 15 MG/ML VIAL (*BKC) IV PUSH (07:23)
--- NOTE | 2023-11-12 07:40 | WPDHPUPDATE1 ---
History and Physical Update Update Date/Time: 11/12/23 07:40 History and Physical has been reviewed, including an updated exam of the patient. There are NO changes in the patient's condition. Risks, benefits, and alternatives have been discussed and questions answered. Patient agrees to proceed with procedure.
--- NOTE | 2023-11-12 07:56 | WPDANESEPPF ---
Anes - Initial Pre Proc Eval Procedure: Operation Date: 11/12/23 08:00 Proposed Procedures p Laparoscopic Hiatal Hernia Repair Fundoplication, Davinci Assisted - Derrick Ball DO Date/Time: 11/12/23 07:56 Surgeon: Derrick Ball DO Pre Op Diagnosis: gerd, hiatal hernia Patient Data Age: 57 Gender: F Height: 1.65 m Weight: 88.1 kg Last Vital Signs Temp 98.5 F 11/12/23 06:30 Pulse 80 11/12/23 06:30 Resp 16 11/12/23 06:30 BP 127/77 11/12/23 06:30 Pulse Ox 100 11/12/23 06:30 O2 Del Method Room Air 11/12/23 06:30 Allergies Allergy/AdvReac Type Severity Reaction Status Date / Time tramadol AdvReac Mild Nausea Verified 11/12/23 06:53 Home Medications Medication Instructions Recorded Confirmed Type atorvastatin 10 mg tablet 10 mg PO DAILY 05/19/23 11/06/23 History cyclobenzaprine 10 mg tablet 10 mg PO TID PRN Spasms 05/19/23 11/06/23 History Adults Multivitamin 1 tab-cap PO DAILY 06/03/23 11/12/23 History Vitamin D3 1 cap PO DAILY 06/03/23 11/12/23 History calcium carbonate (Calcium 600) 600 mg PO DAILY 06/03/23 11/12/23 History lactulose 20 gram/30 mL oral 20 g (30 mL) PO BID PRN 07/15/23 11/06/23 Rx solution constipation #1,200 mL lubiprostone 24 mcg capsule 24 mcg PO BID 1 month #60 caps 08/01/23 11/06/23 Rx rabeprazole 20 mg tablet,delayed 20 mg PO BID 3 months #180 tabs 09/22/23 11/06/23 Rx release (AcipHex) Patient hx anesthesia problems: none Family hx anesthesia problems: none Results Review: All pre-operative results and documents have been reviewed as part of the pre-operative evaluation. [facility] Past Medical History Medical History Bloating symptom Change in bowel habits Constipation GERD (gastroesophageal reflux disease) High cholesterol History of gastric ulcer Obese Surgical History Surgical History H/O: hysterectomy History of cholecystectomy History of esophagogastroduodenoscopy (EGD) Family History Family History Father Skin cancer Mother Hypertension Hyperlipidemia Renal carcinoma Social History Social History Smoking status: Never smoker Second hand tobacco smoke exposure: No Alcohol intake: current Alcohol use details: socially Substance use: never Substance use type: does not use Living arrangements: with family Additional living arrangements comments: with sp Occupation/Education: occupation Additional occupation/education comments: [employer] Spiritual care concerns: No Anes - Eval Final PreProcedure Day of Procedure 11/12/23 07:56 Patient weight: obese Heart: regular rate and rhythm Lungs: clear to auscultation Airway: Mallampati scale class III Neurological: alert and oriented Last oral intake: >/= 8 hours ASA classification: III Emergent: no Anesthetic plan: proceed Anesthesia type and monitoring: general ETT and standard monitoring Results Review: All pre-operative results and documents have been reviewed as part of the pre-operative evaluation. Informed Consent: The patient's anesthetic plan and its attendant risks and benefits were discussed with the patient/family/POA. Questions were solicited and answers provided to the satisfaction of the patient/family/POA.
[2023-11-12] MEDS: ceFAZolin 2 GM/D5W 50 ML 2 GM/50 ML BAG IVPB (08:03)
[2023-11-12] MEDS: BUPIVACAINE/EPINEPHRINE 0.5% 30 ML VIAL 40 ML INFILTRATE (08:37)
--- NOTE | 2023-11-12 10:14 | W.PM.PROC2 ---
Procedure Note - Detailed Date of Procedure 11/12/23 Pre-op Diagnosis gerd, hiatal hernia Post-op Diagnosis Same (Type III Paraesophageal Hiatal Hernia) Procedure Performed Robotic assisted laparoscopic paraesophageal hernia repair with 270 degree fundoplication Surgeon Derrick Ball, DO Anesthesia General and Local (0.5% bupivicaine with epi) Indications This is a 57-year-old woman who presented with longstanding esophageal reflux symptoms for the past 15+ years. She had recently undergone EGD which showed evidence of hiatal hernia and reflux esophagitis. An upper GI also confirmed normal esophageal peristalsis and esophageal reflux with the hiatal hernia. Discussions were made with the patient about treatment options and decision was made to proceed with robotic assisted laparoscopic hiatal hernia repair with fundoplication. Findings Upon inspecting the abdomen laparoscopically, patient was found to have a type 3 hiatal hernia with the GE junction about 3 cm above the esophageal hiatus and a portion of the cardia and fundus protruding up into the hiatal hernia as well. A robotic paraesophageal hiatal hernia repair was performed and decision was made to proceed with 270 degree fundoplication. No specimens were obtained for pathology. Description of Procedure Procedure as well as risks, benefits, and alternatives were discussed with the patient. Written consent was obtained and placed in chart prior to procedure. Patient was brought back to surgical suite. She was placed supine on operating table. Time-out was done to confirm patient and procedure. She was then intubated by the anesthesia department. Her abdomen was prepped and draped in sterile fashion using chlorhexidine prep. 0.5% bupivacaine with epinephrine was infiltrated locally around each area for port placement. An 8 mm incision was made in the left upper quadrant 2 cm inferior to the costal margin in the mid clavicular line. A 5 mm Optiview trocar was then advanced through the abdominal layers under direct visualization. Once inside the abdominal cavity, carbon dioxide insufflation was used to create a pneumoperitoneum. The camera was inserted in the abdomen was inspected. No immediate abnormalities were identified. Another 8 mm camera port was placed about 15 cm inferior to the xiphoid just to the left of midline under direct visualization. An 8 mm port was placed in the anterior axillary line on the left upper quadrant at about the same transverse plane as the camera port. An 8 mm port was placed in the right upper quadrant and another 8 mm AirSeal assist port was placed in right lower quadrant just to the right of the umbilicus. A 5 mm incision was made in the subxiphoid region and the Young liver retractor was inserted through this incision into the abdominal cavity to lift up the left lobe of the liver. This was secured in place to the bed of the table. The patient was then placed in 30? reverse Trendelenburg. The robotic arms were secured to the ports and the robotic camera and instruments were inserted. A force bipolar grasper was placed in the right upper quadrant port. The vessel sealer was placed in the midclavicular left upper quadrant port and a Cadiere grasper was placed in the anterior axillary line left upper quadrant port. I then moved over to the robotic console took control of the camera and instruments. A careful thorough exam was performed throughout the abdomen. The stomach was then reduced from within the hiatal hernia. The gastrohepatic ligament was taken down medially using the vessel sealer to identify the right deangelo. Peritoneum along the medial side of the right deangelo was then divided using the vessel sealer. This allowed me to enter into the avascular plane and carefully dissect the hernia sac from within the hiatus. I continued the peritoneal incision along the right deangelo up to the anterior portion of the diaphragm. I then also dissected this far en
[2023-11-12] MEDS: SIMETHICONE 125 MG CHEW TAB PO ×3 (12:41→20:22)
[2023-11-12] MEDS: LACTATED RINGERS 1,000 ML 100 ML IV CONT (12:42)
[2023-11-12] MEDS: ONDANSETRON INJ 4 MG/2 ML VIAL IV PUSH ×3 (12:49→21:36)
--- NOTE | 2023-11-12 13:01 | ADMGEN ---
This patient, Pablo Alvarado, was admitted to [facility] Surg Room 328-01. Patient/family oriented to hospital policies and general routines including ID bracelet, bed and alarms, visiting hours, pain management, procedures, bathroom and other care routines, personal items, smoking policy, room service/diet, and visiting hours. Information on how to activate the Rapid Response Team has been discussed. Patient/Family are encouraged to report perceived risks to care and to ask questions if they do not understand what they are told or what they should do. Report from Debbie in or
[2023-11-12] MEDS: ACETAMINOPHEN 325 MG TABLET 650 MG PO (18:46)
[2023-11-12] MEDS: PANTOPRAZOLE 40 MG TABLET PO (20:22)
[2023-11-13 01:17] VITALS: BP 131/74; PULSE 96; RESP 18; TEMP 36.7; O2SAT 99
[2023-11-13] MEDS: ACETAMINOPHEN 325 MG TABLET 650 MG PO ×2 (02:32→08:32)
[2023-11-13 05:44] VITALS: BP 142/81; PULSE 94; RESP 16; TEMP 37.2; O2SAT 98
[2023-11-13 06:36] LABS: Hematocrit 35.7 % (37.0-47.0); Hemoglobin 11.7 g/dL (12.0-15.0); Mean Corpuscular HGB Conc 32.8 g/dl (32-36); Mean Corpuscular Hemoglobin 28.8 pg (26-34); Mean Corpuscular Volume 87.9 fl (80-100); Mean Platelet Volume 10.1 fl (7.4-10.4); Platelet Count Result 390 k/mm3 (150-375); Red Blood Count 4.06 M/mm3 (4.2-5.4); Red Cell Distribution Width 13.6 % (11.5-14.5); White Blood Count 13.1 K/mm3 (4.5-10.0)
[2023-11-13 07:29] LABS: Anion Gap 7 mmol/L (4-12); Blood Urea Nitrogen 7 mg/dL (7-17); Calcium 9.5 mg/dL (8.4-10.2); Carbon Dioxide 24 mmol/L (22-30); Chloride 107 mmol/L (98-107); Estimated CRCL calculation 95 ml/min; Estimated Glomerular Filt Rate > 60; Glucose 100 mg/dL (65-110); Potassium 3.6 mmol/L (3.4-5.0); Sodium 138 mmol/L (137-145)
[2023-11-13 08:00] VITALS: BP 144/85; PULSE 99; RESP 16; TEMP 36.9; O2SAT 100
[2023-11-13] MEDS: ENOXAPARIN 40 MG/0.4 ML SYRINGE SUB-Q (08:26)
[2023-11-13] MEDS: ATORVASTATIN 10 MG TABLET PO (08:26)
[2023-11-13] MEDS: PANTOPRAZOLE 40 MG TABLET PO (08:27)
[2023-11-13] MEDS: SIMETHICONE 125 MG CHEW TAB PO ×2 (08:27→12:01)
--- NOTE | 2023-11-13 08:29 | WPDANESPN ---
Anes - Prog Note Post-Op Date/Time: 11/13/23 08:29 Cardiovascular status: normal Respiratory status: normal Airway patency: baseline Mental status: baseline Post-Op hydration status: normal Vital Signs: Last Vital Signs Temp 36.9 C 11/13/23 08:00 Pulse 99 11/13/23 08:00 Resp 16 11/13/23 08:00 BP 144/85 H 11/13/23 08:00 Pulse Ox 100 11/13/23 08:00 O2 Del Method Room Air 11/12/23 20:00 O2 Flow Rate 8 11/12/23 10:45 Pain Score (VAS): 10/04 I/O: Intake & Output 11/12/23 11/13/23 11/13/23 23:59 07:59 15:59 Intake Total 118 1550 Balance 118 1550 Laboratory Tests 11/13/23 05:58 11/13/23 05:58 11/13/23 05:58 WBC 13.1 H RBC 4.06 L Hgb 11.7 L Hct 35.7 L MCV 87.9 MCH 28.8 MCHC 32.8 RDW 13.6 Plt Count 390 H MPV 10.1 Sodium 138 Potassium 3.6 Chloride 107 Carbon Dioxide 24 Anion Gap 7 BUN 7 Creatinine 0.60 L Estim Creat Clear Calc 95 Estimated GFR > 60 Glucose 100 Calcium 9.5 Post-procedural complaints: none Patient Feedback: Patient satisfied with anesthetic care.
[2023-11-13 12:00] VITALS: BP 148/81; PULSE 84; RESP 16; TEMP 36.3; O2SAT 100
--- NOTE | 2023-11-13 12:52 | PM.DS ---
DS: Admitting Diagnosis Discharge Date 11/13/23 Admitting Diagnosis Hiatal hernia, GERD DS: Discharge Diagnosis Discharge Diagnosis (1) Hiatal hernia: Code(s): K44.9 - Diaphragmatic hernia without obstruction or gangrene Status: Acute (2) GERD (gastroesophageal reflux disease): Qualifiers: Esophagitis presence: with esophagitis Esophagitis bleeding: without hemorrhage Qualified Code(s): K21.00 - Gastro-esophageal reflux disease with esophagitis, without bleeding Code(s): K21.9 - Gastro-esophageal reflux disease without esophagitis Status: Acute DS: Summary Hospital Course Reason for hospitalization: This is a 57-year-old woman with longstanding esophageal reflux symptoms for 15+ years. She had outpatient workup and was seen in our office for a hiatal hernia. Decision was made to proceed with surgical repair and she presented yesterday for a robotic assisted laparoscopic paraesophageal hernia repair by Dr. Sebastian. Hospital Course: Patient had a robotic assisted laparoscopic paraesophageal hernia repair with [address] Sebastian on 11/12/2023. Patient has done well postoperatively. She was advanced to clear liquids and up to full liquids this morning. She denies any dysphagia or regurgitation. Her postoperative incisional soreness is being controlled with Tylenol. Reports flatus today. No nausea or vomiting. She is tolerating activity. The patient is stable for discharge today. Follow up within [address] Sebastian. Status at Discharge Functional status at discharge: independent ambulation Overall status at discharge: patient is progressing back to baseline Time Spent with Patient Time attestation: Total time spent providing and/or coordinating discharge services: Time spent: Less than 30 minutes Exam Const: General: comfortable and no acute distress Resp: Effort & Inspection: normal respiratory effort Auscultation: clear to auscultation bilaterally Cardio: Rate: regular rate Rhythm: regular rhythm GI: Inspection: non-distended and incision (incisions dry and intact) GI Palp: Yes Soft to palpation, Yes Tenderness to palpation present (GI) (incisional) and No Guarding due to palpation present (GI) Auscultation: normal bowel sounds Neuro: General: moves all extremities and no focal motor deficits Extrem: General: no calf tenderness and no edema Psych: Mental Status: mental status grossly normal Insight: Good insight present (Psych) DS: Data Data Completed and Pending Labs on day of discharge: Labs from last 24 hours 11/13/23 05:58 WBC 13.1 H RBC 4.06 L Hgb 11.7 L Hct 35.7 L MCV 87.9 MCH 28.8 MCHC 32.8 RDW 13.6 Plt Count 390 H MPV 10.1 Sodium 138 Potassium 3.6 Chloride 107 Carbon Dioxide 24 Anion Gap 7 BUN 7 Creatinine 0.60 L Estim Creat Clear Calc 95 Estimated GFR > 60 Glucose 100 Calcium 9.5 Procedures/Treatments: Procedures Operation Date: 11/12/23 08:00 Actual Procedure Side Surgeon p Laparoscopic Hiatal Hernia Repair Fundoplication, Davinci Assisted Derrick Sebastian, DO Discharge Plan Discharge Patient Disposition: Home, Self-Care Discharge Instructions: DISCHARGE INSTRUCTION SHEET FOR HERNIA, GALLBLADDER AND APPENDIX SURGERIES DR. SEBASTIAN 1. May shower 24 hours after surgery, no soaking in bath x 2weeks. 2. Call office for: Wound increasingly painful or bleeding Vomiting Fever of greater than 101 degrees 3. If no bowel movement for three days, take 1 oz. (30 ml) Milk of Magnesia or MiraLax 17g 1 to 2 times daily. 4. No heavy lifting > 10-15 pounds until restrictions are lifted by your surgeon 5. No driving for 3 days or while taking narcotic pain medications. 6. Ice to surgical site for 48 hours (30 min on, then 30 min off). 7. Up walking 10-30 minutes three times per day. 8. Resume previous home
== END 2023-11-13 14:25 | disposition home or self-care (01) ==
LOC: ANHSURGERY 06:22 → ANH3MEDSUR 12:01
PROVIDERS: PCP Internal Medicine; Visit Provider Surgery
PROC: 0DV44ZZ Restriction of Esophagogastric Junction, Percutaneous Endoscopic Approach (ICD-10-PCS; CPT 43280; principal; 2023-11-12 08:00)
DX: K44.9 Diaphragmatic hernia without obstruction or gangrene (principal); K21.00 Gastro-esophageal reflux disease with esophagitis, without bleeding; K59.00 Constipation, unspecified; E78.00 Pure hypercholesterolemia, unspecified; E66.9 Obesity, unspecified; Z68.32 Body mass index [BMI] 32.0-32.9, adult; Z98.890 Other specified postprocedural states; Z90.49 Acquired absence of other specified parts of digestive tract; Z87.11 Personal history of peptic ulcer disease; Z84.0 Family history of diseases of the skin and subcutaneous tissue; Z80.51 Family history of malignant neoplasm of kidney
CPT/HCPCS: 43281; S2900; 36415; 80048; 85027; 86850; 86900; 86901; A9270; J0690; J1100; J1170; J1650; J1885; J2250; J2405; J2704; J3010; J7030; J7120

== ENCOUNTER 2024-04-29 14:44 | Outpatient (CLI) | payer BC, SELFPAY ==
--- NOTE | ~2024-04-29 | MM_ITS ---
EXAMINATION: MM screening radha BI w danita HISTORY: Screening TECHNIQUE: Craniocaudal and mediolateral oblique 3-D tomosynthesis images were obtained and synthetic 2-D images were generated. CAD analysis was submitted and interpreted. COMPARISON: Comparison to multiple prior studies sequentially, with oldest reviewed study dated 12/04. BREAST PARENCHYMAL COMPOSITION: Not dense: There are scattered areas of fibroglandular density. FINDINGS: There is no evidence of suspicious mass, calcification, or architectural distortion to sugg est malignancy in either breast. There has been no suspicious interval change. IMPRESSION: 1. No mammographic evidence of malignancy. 2. Recommend routine screening mammography in one year. BI-RADS Category 1: Negative Reviewed, dictated and finalized at location B.
== END 2024-04-29 14:45 | disposition home or self-care (01) ==
PROVIDERS: PCP Internal Medicine; Visit Provider Internal Medicine
DX: Z12.31 Encounter for screening mammogram for malignant neoplasm of breast (principal)
CPT/HCPCS: 77063; 77067

== ENCOUNTER 2024-07-12 07:25 | Outpatient (CLI) | payer BC, SELFPAY ==
--- NOTE | ~2024-07-12 | US_ITS ---
Limited Abdominal Sonogram: Real-time sonographic imaging of the right upper quadrant was performed. Clinical History: Abnormal liver enzymes Findings: The liver appears echogenic, with no evidence of mass lesion or bile duct dilatation. Main portal vein demonstrates normal direction of flow. The gallbladder is absent, compatible prior yulissa cystectomy. The common bile duct measures 6 mm. The visualized pancreas, aorta, and IVC are unremark able. Right upper pole renal cyst incidentally noted. Impression: Diffuse fatty infiltration of the liver. Reviewed, dictated and finalized at location M. ZER WORKER Impression: Diffuse fatty infiltration of the liver.
--- OUTSIDE RECORDS SUMMARY | 2024-07-17 17:20 | XMS_ITS | Encounter Summary ---
Author Organization [facility] Address [address] [place] [address]. 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 Name Role Phone Unavailable Primary Care Provider Unavailabl e Encounter Details Date Type Department Care Team (Late st Contact Info) Description 11/13/1995 Abstract SFL CONVERSION [address] [place] [address] , Generic Conversion, Social History Tobacco Use Types Packs/Day Years Used Date Smoking Tobacco: Never Assessed Comments Unknown Sex and Gender Information Value Date Recorded Sex Assigned at Not on file Legal Sex Female 4:34 PM CDT Gender Identity Not on file Sexual Orientation Not on file documented as of this encounter Plan of Treatment Not on file documented as of this encounter Visit Diagnoses Not on filedocumented in this encounter
--- OUTSIDE RECORDS SUMMARY | 2024-07-17 17:20 | XMS_ITS | Encounter Summary ---
Author Organization [facility] Address [address] [place] [address]. [place] [address] [place] [address] Care Team Providers Care Shift Supervisor Film Processing Name Role Phone Unavailable Primary Care Provider Unavailabl e Encounter Details Date Type Department Care Team (Late st Contact Info) Description 06/23/2017 Abstract [facility] [address] [place] [address] Joshua Cintron MD Social History Tobacco Use Types Packs/Day Years Used Date Smoking Tobacco: Never Assessed Comments Unknown Sex and Gender Information Value Date Recorded Sex Assigned at Not on file Legal Sex Female 4:34 PM CDT Gender Identity Not on file Sexual Orientation Not on file documented as of this encounter Plan of Treatment Not on file documented as of this encounter Procedures Procedure Name Priority Date/Time Associated Diagnosis Comments HEPATIC FUNCTION PANEL Routine 06/23/2017 7:12 AM STONE LATHE OPERATOR CBC W/DIFF AUTOMATED Routine 06/23/2017 7:12 AM STONE LATHE OPERATOR CREATININE Routine 06/23/2017 7:12 AM STONE LATHE OPERATOR documented in this encounter Results * (ABNORMAL) HEPATIC FUNCTION PANEL (06/23/2017 7:12 AM STONE LATHE OPERATOR) BILIRUBIN TOTAL S/P/B 0.3 0.2 - 1.2 MG/DL 06/23/2017 7:37 AM STONE LATHE OPERATOR [facility] BILIRUBIN DIRECT S/P/B 0.2 0.0 - 0.5 MG/DL 06/23/2017 7:37 AM STONE LATHE OPERATOR [facility] TOTAL PROTEIN S/P/B 7.0 6.0 - 8.3 G/DL 06/23/2017 7:37 AM STONE LATHE OPERATOR [facility] ALBUMIN S/P/B 4.0 3.5 - 5.2 G/DL 06/23/2017 7:37 AM [facility] AST 16 5 - 34 U/L 06/23/2017 7:37 AM [facility] ALT 10 0 - 55 U/L 06/23/2017 7:37 AM [facility] ALKALINE PHOSPHATASE S/P/B 74 50 - 136 U/L 06/23/2017 7:37 AM [facility] BILIRUBIN INDIRECT S/P/B 0.1(L) 0.2 - 0.7 MG/DL 06/23/2017 7:37 AM [facility] ALBUMIN/GLOBULIN RATIO 1.3 1.0 - 1.6 RATIO 06/23/2017 7:37 AM [facility] 06/23/2017 7:12 AM STONE LATHE OPERATOR 06/23/2017 7:15 AM STONE LATHE OPERATOR us Generic Conversion Md [facility] Final R esult Performing Organization Address City/[facility]/ZIP Co de Phone Number [address] [place] [address], * CREATININE (06/23/2017 7:12 AM STONE LATHE OPERATOR) CREATININE S/P/B 0.75 0.57 - 1.11 MG/DL 06/23/2017 7:37 AM [facility] EGFR NON-AFR. AMER. >60 >60 ML/MIN/1.7 3 M2 06/23/2017 7:37 AM [facility] EGFR AFR. AMER. >60 >60 ML/MIN/1.7 3 M2 06/23/2017 7:37 AM [facility] 06/23/2017 7:12 AM STONE LATHE OPERATOR 06/23/2017 7:15 AM STONE LATHE OPERATOR us Generic Conversion [facility] Final R esult [facility] [address] [id number], * CBC W/DIFF AUTOMATED (06/23/2017 7:12 AM STONE LATHE OPERATOR) WBC 6.0 4.5 - 10.8 x10'3/uL 06/23/2017 7:18 AM [facility] RBC 4.19 4.10 - 5.40 x10'6/uL 06/23/2017 7:18 AM [facility] HGB 12.1 12.0 - 16.0 G/DL 06/23/2017 7:18 AM [facility] HCT 36.6 36.0 - 47.0 % 06/23/2017 7:18 AM [facility] MCV 87.4 78.0 - 100.0 FL 06/23/2017 7:18 AM [facility] MCH 28.9 27.0 - 31.0 PG 06/23/2017 7:18 AM [facility] MCHC 33.1 33.0 - 36.0 G/DL 06/23/2017 7:18 AM [facility] RDW 13.3 11.5 - 14.5 % 06/23/2017 7:18 AM [facility] PLT 309 150 - 350 x10'3/uL 06/23/2017 7:18 AM [facility] MPV 10.2 7.4 - 10.4 FL 06/23/2017 7:18 AM [facility] SEG NEUTROPHILS 56.6 % 7 7:18 AM [facility] LYMPHOCYTES 33.9 % 06/23/2017 7:18 AM [facility] MONOCYTES 7.0 % 06/23/2017 7:18 AM [facility] EOSINOPHILS 2.3 % 06/23/2017 7:18 AM [facility] BASOPHILS 0.2 % 06/23/2017 7:18 AM [facility] IMMATURE GRANS % 0.0 % 06/23/20 17 7:18 AM [facility] NRBC 0.0 % 06/23/2017 7:18 AM [facility] ABS. NEUTROPHILS 3.38 1.60 - 8.30 x10'3/uL 06/23/2017 7:18 AM STONE LATHE OPERATOR [facility] ABS. LYMPHOCYTES 2.03 0.80 - 4.70 x10'3/uL 06/23/2017 7:18 AM [facility] ABS. MONOCYTES 0.42 0.00 - 1.50 x10'3/uL 06/23/2017 7:18 AM STONE LATHE OPERATOR [facility] ABS. EOSINOPHILS 0.14 0.00 - 0.40 x10'3/uL 06/23/2017 7:18 AM STONE LATHE OPERATOR [facility] ABS. BASOPHILS 0.01 0.00 - 0.20 x10'3/uL 06/23/2017 7:18 AM [facility] ABS. IMMATURE GRANULOCYTES 0.00 0.00 - 0.03 x10'3/uL 06/23/2017 7:18 AM [facility] ABS. NUCLEATED RBC'S 0.00 0.00 x10'3/uL 06/23/2017 7:18 AM [facility] OTHER (type in comments) 06/23/2017 7:12 AM STONE LATHE OPERATOR 06/23/2017 7:15 AM STONE LATHE OPERATOR Comment:WHOLE BLOOD SAMPLE us Generic Conversion Md [facility] Final R esult [facility] [address] [place] [address], documented in this encounter Visit Diagnoses Diagnosis Pain in joint Pain in joint, site unspecified documented in this encounter
--- OUTSIDE RECORDS SUMMARY | 2024-07-17 17:20 | XMS_ITS | Encounter Summary ---
Author Organization [facility] Address [address] [place] [address]. [place] [address] [place] [address] Care Team Providers Care Dental Office Assistant Name Role Phone Unavailable Primary Care Provider Unavailabl e Encounter Details Date Type Department Care Team (Late st Contact Info) Description 04/21/2018 Abstract [facility] [address] [facility] [place] [address] Joshua Cintron MD Social History Tobacco Use [...] Associated Diagnosis Comments HEPATIC FUNCTION PANEL Routine 04/21/2018 9:27 AM CDT CBC W/DIFF AUTOMATED Routine 04/21/2018 9:27 AM CDT CREATININE Routine 04/21/2018 9:27 AM CDT documented in this encounter Results * HEPATIC FUNCTION PANEL (04/21/2018 9:27 AM CDT) BILIRUBIN TOTAL S/P/B 0.4 0.2 - 1.0 MG/DL 04/21/2018 10:03 AM CDT [facility] BILIRUBIN DIRECT S/P/B 0.1 0.0 - 0.2 MG/DL 04/21/2018 10:03 AM CDT [facility] ALKALINE PHOSPHATASE S/P/B 95 41 - 108 U/L 04/21/2018 10:03 AM CDT [facility] AST 22 15 - 37 U/L 04/21/2018 10:03 AM CDT [facility] ALT 29 14 - 59 U/L 04/21/2018 10:03 AM CDT [facility] TOTAL PROTEIN S/P/B 7.1 6.4 - 8.2 G/DL 04/21/2018 10:03 AM CDT [facility] ALBUMIN S/P/B 3.6 3.4 - 5.0 G/DL 04/21/2018 10:03 AM CDT [facility] PLASMA SPECIMEN / Unknown 04/21/2018 9:27 AM CDT 04/21/2018 9:28 AM CDT us Generic Conversion Md [facility] Final R esult [facility] [address] [place] [address], * CREATININE (04/21/2018 9:27 AM CDT) CREATININE S/P/B 0.75 0.55 - 1.02 MG/DL 04/21/2018 10:03 AM CDT [facility] EGFR NON-AFR. AMER. >90 >89 ML/MIN/1.7 3 M2 04/21/2018 10:03 AM CDT [facility] Comment: THE ESTIMATED GFR IS CALCULATED USING THE 2009 CKD-EPI EQUATION. THE FOLLOWING CATEGORIES FOR GRADING RENAL FUNCTION ARE RECOMMENDED BY THE INTERNATIONAL SOCIETY OF NEPHROLOGY (KDIGO 2012 CLINICAL PRACTICE GUIDELINE).G1,NORMAL OR HIGH: >89 ml/min/1.73 m2G2,MILDLY DECREASED: 60-89 ml/min/1.73 m2G3A,MILDLY TO MODERATELY DECREASED: 45-59 ml/min/1.73 m2G3B,MODERATELY TO SEVERELY DECREASED: 30-44 ml/min/1.73 m2G4,SEVERELY DECREASED: 15-29 ml/min/1.73 m2G5,KIDNEY FAILURE: <15 ml/min/1.73 m2 EGFR AFR. AMER. >90 >89 ML/MIN/1.7 3 M2 04/21/2018 10:03 AM CDT [facility] Comment: THE ESTIMATED GFR IS CALCULATED USING THE 2009 CKD-EPI EQUATION. THE FOLLOWING CATEGORIES FOR GRADING RENAL FUNCTION ARE RECOMMENDED BY THE INTERNATIONAL SOCIETY OF NEPHROLOGY (KDIGO 2012 CLINICAL PRACTICE GUIDELINE).G1,NORMAL OR HIGH: >89 ml/min/1.73 m2G2,MILDLY DECREASED: 60-89 ml/min/1.73 m2G3A,MILDLY TO MODERATELY DECREASED: 45-59 ml/min/1.73 m2G3B,MODERATELY TO SEVERELY DECREASED: 30-44 ml/min/1.73 m2G4,SEVERELY DECREASED: 15-29 ml/min/1.73 m2G5,KIDNEY FAILURE: <15 ml/min/1.73 m2 SERUM OR PLASMA SPECIMEN / Unknown 04/21/2018 9:27 AM CDT 04/21/2018 9:28 AM CDT us Generic Conversion Md [facility] Final R esult [facility] [place] [address], * (ABNORMAL) CBC W/DIFF AUTOMATED (04/21/2018 9:27 AM CDT) WBC 7.1 4.5 - 10.8 x10'3/uL 04/21/2018 9:35 AM CDT [facility] RBC 4.00(L) 4.10 - 5.40 x10'6/uL 04/21/2018 9:35 AM CDT [facility] HGB 12.0 12.0 - 16.0 G/DL 04/21/2018 9:35 AM CDT [facility] HCT 36.8 36.0 - 47.0 % 04/21/2018 9:35 AM CDT [facility] MCV 92.0 78.0 - 100.0 FL 04/21/2018 9:35 AM CDT [facility] MCH 30.0 27.0 - 31.0 PG 04/21/2018 9:35 AM CDT [facility] MCHC 32.6(L) 33.0 - 36.0 G/DL 04/21/2018 9:35 AM CDT [facility] RDW 14.7(H) 11.5 - 14.5 % 04/21/2018 9:35 AM CDT [facility] PLT 338 150 - 350 x10'3/uL 04/21/2018 9:35 AM CDT [facility] MPV 10.6(H) 7.4 - 10.4 FL 04/21/2018 9:35 AM CDT [facility] SEG NEUTROPHILS 66.5 % 8 9:35 AM CDT [facility] LYMPHOCYTES 20.3 % 04/21/2018 9:35 AM CDT [facility] MONOCYTES 7.6 % 04/21/2018 9:35 AM CDT [facility] EOSINOPHILS 5.4 % 04/21/2018 9:35 AM CDT [facility] BASOPHILS 0.1 % 04/21/2018 9:35 AM CDT [facility] IMMATURE GRANS % 0.1 % 04/21/20 18 9:35 AM CDT [facility] NRBC 0.0 % 04/21/2018 9:35 AM CDT [facility] ABS. NEUTROPHILS 4.70 1.60 - 8.30 x10'3/uL 04/21/2018 9:35 AM CDT [facility] ABS. LYMPHOCYTES 1.44 0.80 - 4.70 x10'3/uL 04/21/2018 9:35 AM CDT [facility] ABS. MONOCYTES 0.54 0.00 - 1.50 x10'3/uL 04/21/2018 9:35 AM CDT [facility] ABS. EOSINOPHILS 0.38 0.00 - 0.40 x10'3/uL 04/21/2018 9:35 AM CDT [facility] ABS. BASOPHILS 0.01 0.00 - 0.20 x10'3/uL 04/21/2018 9:35 AM CDT [facility] ABS. IMMATURE GRANULOCYTES 0.01 0.00 - 0.03 x10'3/uL 04/21/2018 9:35 AM CDT [facility] ABS. NUCLEATED RBC'S 0.00 0.00 x10'3/uL 04/21/2018 9:35 AM CDT [facility] OTHER (type in comments) 04/21/2018 9:27 AM CDT 04/21/2018 9:28 AM CDT Comment:WHOLE BLOOD SAMPLE us Generic Conversion Md [facility] Final R esult [facility] [address] [place] [address], documented in this encounter Visit Diagnoses Diagnosis Arthropathic psoriasis ([facility]/HCC [facility]/HCC) Psoriatic arthropathy documented in this encounter
--- OUTSIDE RECORDS SUMMARY | 2024-07-17 17:20 | XMS_ITS | Clinical Summary ---
Author Organization [facility] Address [address] [place] [address]. [place], [place] [id number] [place] [address] Care Team Providers Care Specialty Molder Name Role Phone Unavailable Primary Care Provider Unavailabl e Social History Tobacco Use Types Packs/Day Years Used Date Smoking Tobacco: Never Assessed Comments Unknown Sex and Gender Information Value Date Recorded Sex Assigned at Not on file Legal Sex Female 4:34 PM CDT Gender Identity Not on file Sexual Orientation Not on file Plan of Treatment Health Maintenance Due Date Last Done Comments Cervical Cancer Screening Pa p Smear (Age 30 to 64) Every 3 Years 1964 Colorectal Cancer Screening Colonoscopy (10 Years) 1964 Annual Physical 12/10/1967 Hepatitis C 1982 DTaP, Tdap and Td Vaccines ( 1 - Tdap) 12/10/1983 Cervical Cancer Screening Pa p with HPV Testing (Age 30 to 64) Every 5 Years 1994 Cervical Cancer Screening with HPV 1994 Mammogram Screening 2004 Zoster Vaccines (1 of 2) 2014 COVID-19 Vaccine (2023-2 5 season) 2024 Influenza Adult (#1) 2024 Meningococcal Vaccine Aged Out No rony kristina eligible based on patient's age to complete this topic Pneumococcal Vaccine: Pediat rics (0 to 5 Years) and At-Risk Patients (6 to 64 Years) Aged Out No longer eligible b ased on patient's age to complete this topic RSV Immunizations Under 20 Months Aged Out No longer eligible based on patient's age to complete this topic
--- OUTSIDE RECORDS SUMMARY | 2024-07-17 17:20 | XMS_ITS | Encounter Summary ---
Author Organization [facility] Address [address] [place] [address]. [place] [address] [place] [address] Care Team Providers Care B2B Sales Manager Name Role Phone Unavailable Primary Care Provider Unavailabl e Encounter Details Date Type Department Care Team (Late st Contact Info) Description 04/23/[address] [facility] [address] [facility] [place] [address] Joshua Cintron MD Social History Tobacco Use [...] documented as of this encounter Visit Diagnoses Diagnosis Osteoarthritis Osteoarthrosis, unspecified whether generalized or localized, unspecified site documented in this encounter
--- OUTSIDE RECORDS SUMMARY | 2024-07-17 17:20 | XMS_ITS | Encounter Summary ---
Author Organization [facility] Address [address] [place] [address]. [place], [place] [address] [place], [place] [id number] Care Team Providers Care Watch Crystal Molder Name Role Phone Unavailable Primary Care Provider Unavailabl e Encounter Details Date Type Department Care Team (Late st Contact Info) Description 11/23/[address] [facility] [place] [address] , Virgilio Lara MD Social History Tobacco Use Types Packs/Day [...]
--- OUTSIDE RECORDS SUMMARY | 2024-07-17 17:20 | XMS_ITS | Encounter Summary ---
Author Organization [facility] Address [address] [place] [address]. [place] [address] [place] [address] Care Team Providers Care Golf Club Manager Name Role Phone Unavailable Primary Care Provider Unavailabl e Encounter Details Date Type Department Care Team (Late st Contact Info) Description 11/14/2017 Abstract [facility] [address] [facility] [address] [place] [address] Joshua Cintron MD Social History Tobacco Use [...] Associated Diagnosis Comments HEPATIC FUNCTION PANEL Routine 11/14/2017 7:07 AM CDT CBC W/DIFF AUTOMATED Routine 11/14/2017 7:07 AM CDT CREATININE Routine 11/14/2017 7:07 AM CDT documented in this encounter Results * HEPATIC FUNCTION PANEL (11/14/2017 7:07 AM CDT) BILIRUBIN TOTAL S/P/B 0.5 0.2 - 1.2 MG/DL 11/14/2017 7:50 AM CDT [facility] BILIRUBIN DIRECT S/P/B 0.2 0.0 - 0.5 MG/DL 11/14/2017 7:50 AM CDT [facility] TOTAL PROTEIN S/P/B 7.1 6.0 - 8.3 G/DL 11/14/2017 7:50 AM CDT [facility] ALBUMIN S/P/B 4.1 3.5 - 5.2 G/DL 11/14/2017 7:50 AM CDT [facility] AST 21 5 - 34 U/L 11/14/2017 7:50 AM CDT [facility] ALT 20 0 - 55 U/L 11/14/2017 7:50 AM CDT [facility] ALKALINE PHOSPHATASE S/P/B 83 50 - 136 U/L 11/14/2017 7:50 AM CDT [facility] BILIRUBIN INDIRECT S/P/B 0.3 0.2 - 0.7 MG/DL 11/14/2017 7:50 AM CDT [facility] ALBUMIN/GLOBULIN RATIO 1.4 1.0 - 1.6 RATIO 11/14/2017 7:50 AM CDT [facility] 11/14/2017 7:07 AM CDT 11/14/2017 7:24 AM CDT us Generic Conversion Md [facility] Final R esult Performing Organization Address City/[facility]/ZIP Co de Phone Number [facility] [place] [address], * CREATININE (11/14/2017 7:07 AM CDT) CREATININE S/P/B 0.73 0.57 - 1.11 MG/DL 11/14/2017 7:50 AM CDT [facility] EGFR NON-AFR. AMER. >60 >60 ML/MIN/1.7 3 M2 11/14/2017 7:50 AM CDT [facility] EGFR AFR. AMER. >60 >60 ML/MIN/1.7 3 M2 11/14/2017 7:50 AM CDT [facility] 11/14/2017 7:07 AM CDT 11/14/2017 7:24 AM CDT us Generic Conversion Md [facility] Final R esult [facility] [address] [place] [id number], * (ABNORMAL) CBC W/DIFF AUTOMATED (11/14/2017 7:07 AM CDT) WBC 6.0 4.5 - 10.8 x10'3/uL 11/14/2017 7:30 AM CDT [facility] RBC 4.13 4.10 - 5.40 x10'6/uL 11/14/2017 7:30 AM CDT [facility] HGB 11.9(L) 12.0 - 16.0 G/DL 11/14/2017 7:30 AM CDT [facility] HCT 36.6 36.0 - 47.0 % 11/14/2017 7:30 AM CDT [facility] MCV 88.6 78.0 - 100.0 FL 11/14/2017 7:30 AM CDT [facility] MCH 28.8 27.0 - 31.0 PG 11/14/2017 7:30 AM CDT [facility] MCHC 32.5(L) 33.0 - 36.0 G/DL 11/14/2017 7:30 AM CDT [facility] RDW 13.4 11.5 - 14.5 % 11/14/2017 7:30 AM CDT [facility] PLT 370(H) 150 - 350 x10'3/uL 11/14/2017 7:30 AM CDT [facility] MPV 10.4 7.4 - 10.4 FL 11/14/2017 7:30 AM CDT [facility] SEG NEUTROPHILS 64.7 % 8 7:30 AM CDT [facility] LYMPHOCYTES 24.7 % 11/14/2017 7:30 AM CDT [facility] MONOCYTES 8.0 % 11/14/2017 7:30 AM CDT [facility] EOSINOPHILS 2.2 % 11/14/2017 7:30 AM CDT [facility] BASOPHILS 0.2 % 11/14/2017 7:30 AM CDT [facility] IMMATURE GRANS % 0.2 % 11/15/19 7:30 AM CDT [facility] NRBC 0.0 % 11/14/2017 7:30 AM CDT [facility] ABS. NEUTROPHILS 3.91 1.60 - 8.30 x10'3/uL 11/14/2017 7:30 AM CDT [facility] ABS. LYMPHOCYTES 1.49 0.80 - 4.70 x10'3/uL 11/14/2017 7:30 AM CDT [facility] ABS. MONOCYTES 0.48 0.00 - 1.50 x10'3/uL 11/14/2017 7:30 AM CDT [facility] ABS. EOSINOPHILS 0.13 0.00 - 0.40 x10'3/uL 11/14/2017 7:30 AM CDT [facility] ABS. BASOPHILS 0.01 0.00 - 0.20 x10'3/uL 11/14/2017 7:30 AM CDT [facility] ABS. IMMATURE GRANULOCYTES 0.01 0.00 - 0.03 x10'3/uL 11/14/2017 7:30 AM CDT [facility] ABS. NUCLEATED RBC'S 0.00 0.00 x10'3/uL 11/14/2017 7:30 AM CDT [facility] OTHER (type in comments) 11/14/2017 7:07 AM CDT 11/14/2017 7:24 AM CDT Comment:WHOLE BLOOD SAMPLE us Generic Conversion Md [facility] Final R esult [facility] [address] [place] [address], documented in this encounter Visit Diagnoses Diagnosis Arthropathic psoriasis (CMS/HCC H[facility]/HCC) Psoriatic arthropathy documented in this encounter
--- OUTSIDE RECORDS SUMMARY | 2024-07-17 17:22 | XMS_ITS | Encounter Summary ---
Author Organization [facility] Address [address] [place] [address] Phone Care Team Providers Care Official Court Interpreter Name Role Phone Luigi Jeffries MD Primary Care Provider [phone] Encounter Details Date Type Department Care Team (Late st Contact Info) Description 06/07/2019 Orders Only [facility] [address] [place] [address] Katt Sales CMA Abnormal mammogram (Primary Dx) Social History Tobacco Use Types Packs/Day Years Used Date Smoking Tobacco: Never Smokeless Tobacco: Never Alcohol Use Standard Drinks/Week Comments Yes 0 (1 standard drink = 0.6 oz pur e alcohol) socially Comments Unknown Sex and Gender Information Value Date Recorded Sex Assigned at Not on file Legal Sex Female 1:28 AM CLINICAL TRIALS NURSE Gender Identity Not on file Sexual Orientation Not on file documented as of this encounter Plan of Treatment Not on file documented as of this encounter Visit Diagnoses Diagnosis Abnormal mammogram- Primary Abnormal mammogram, unspecified documented in this encounter Care Teams Official Court Interpreter Relationship Specialty Start Date End Date Luigi Jeffries MD [address] [place] [address] PCP - General 04/03/10 documented as of this encounter
--- OUTSIDE RECORDS SUMMARY | 2024-07-17 17:22 | XMS_ITS | Clinical Summary ---
Author Organization [facility] Address [address] [place] [address] Care Team Providers Care Hand Cooper Helper Name Role Phone Luigi Jeffries MD Primary Care Provider [phone] Allergies No known active allergies Medications nabumetone (RELAFEN) 500 mg tablet Take 500 mg by mouth 2 (two) times a day Active leflunomide (ARAVA) 20 mg tabletIndicatio ns:Rheumatoid Arthritis Take 20 mg by mouth daily 3 tabs once weekly Active risedronate (ACTONEL) 35 mg tablet Take 35 mg by mouth every 7 days with water on empty stomach, nothing by mouth or lie down for next 30 minutes. Active tazarotene (AVAGE) 0.1 % cream Apply topically nightly Weekly Active Active Problems Problem Noted Date Diagnosed Date Abnormal mammogram 05/30/2019 Surgical History Surgery Date Site/Laterality Comments HYSTERECTOMY 07/28/1996 - 07/27/1997 Hysterectomy OTHER SURGICAL HISTORY 07/28/2009 - 07/27/2010 laparoscopic cholecystectomy 04/06 HYSTERECTOMY 07/28/1996 - 07/27/1997 Medical History Medical History Date Comments Psoriasis Psoriasis Hx Other Medical Joint pain Endometritis Endometriosis Family History Medical History Relation Name Comments Hodgkin's lymphoma Brother Hodgkin's disease; Non-Hodgkin's Lymphoma Brother Melanoma Daughter Diabetes Father Diabetes mellit us; Melanoma Father Melanoma; Kidney cancer Mother Throat cancer Other 1 Prostate cancer Other 2 Relation Name Status Comments Brother Daughter Father Alive Mother Other 1 Other 2 Social History Tobacco Use Types Packs/Day Years Used Date Smoking Tobacco: Never Smokeless Tobacco: Never Alcohol Use Standard Drinks/Week Comments Yes 0 (1 standard drink = 0.6 oz pur e alcohol) socially Comments Unknown Sex and Gender Information Value Date Recorded Sex Assigned at Not on file Legal Sex Female 1:28 AM SOIL FIELD TECHNICIAN Gender Identity Not on file Sexual Orientation Not on file Obstetrics History Last Filed Vital Signs Vital Sign Reading Time Taken Comments Blood Pressure - - Pulse - - Temperature - - Respiratory Rate - - Oxygen Saturation - - Inhaled Oxygen Concentration - - Weight 86.9 kg (191 lb 8 oz) 05/31/2019 9:52 AM SOIL FIELD TECHNICIAN Height 164.5 cm (5' 4.76 ) 05/31/2019 9:52 AM CS T Body Mass Index 32.1 05/31/2019 9:52 AM SOIL FIELD TECHNICIAN Plan of Treatment Not on file Insurance [employer] O[employer] Care Teams Hand Cooper Helper Relationship Specialty Start Date End Date Luigi Jeffries MD [address] [place] [address] PCP - General 04/03/10
--- OUTSIDE RECORDS SUMMARY | 2024-07-17 17:22 | XMS_ITS | Encounter Summary ---
Author Organization [facility] Healthcare Address [address] [place] [address] Care Team Providers Care Ladle Builder Name Role Phone Luigi Jeffries MD Primary Care Provider [phone] Encounter Details Date Type Department Care Team (Late st Contact Info) Description 05/31/2019 2:25 PM KENO WRITER Ancillary Procedure [facility] Outside Films Ema Guo MD [address] [facility] [address] [place], [place] [id number] Social History Tobacco Use Types Packs/Day Years Used Date Smoking Tobacco: Never Smokeless Tobacco: Never Alcohol Use Standard Drinks/Week Comments Yes 0 (1 standard drink = 0.6 oz pur e alcohol) socially Comments Unknown Sex and Gender Information Value Date Recorded Sex Assigned at Not on file Legal Sex Female 1:28 AM KENO WRITER Gender Identity Not on file Sexual Orientation Not on file documented as of this encounter Plan of Treatment Not on file documented as of this encounter Procedures Procedure Name Priority Date/Time Associated Diagnosis Comments BREAST IMAGING OUTSIDE REFERENCE Routine 05/31/2019 2:11 PM KENO WRITER Diagnosis unknown documented in this encounter Results * Breast Imaging Outside Reference (05/31/2019 2:11 PM KENO WRITER) Narrative RAD_PACS_[facility] - 05/31/2019 2:11 PM KENO WRITER This order has been auto-finalized and does not contain a result. Ema Guo MD IMG MAMMO PROCEDURES Fin al Result RAD_PACS_[facility] documented in this encounter Visit Diagnoses Not on filedocumented in this encounter Care Teams Ladle Builder Relationship Specialty Start Date End Date Luigi Jeffries MD [address] [id number] PCP - General 04/03/10 documented as of this encounter
--- OUTSIDE RECORDS SUMMARY | 2024-07-17 17:22 | XMS_ITS | Encounter Summary ---
Author Organization [facility] Healthcare Address [address] [place] [address] Care Team Providers Care Regulatory Affairs Director Name Role Phone Luigi Jeffries MD Primary Care Provider [phone] Encounter Details Date Type Department Care Team (Late st Contact Info) Description 05/31/2019 2:20 PM SOLDERER ASSEMBLY REPAIR Ancillary Procedure [facility] Outside Films Ema Guo MD [address] [facility] [address] [place], [place] [id number] Social History Tobacco Use Types Packs/Day Years Used Date Smoking Tobacco: Never Smokeless Tobacco: Never Alcohol Use Standard Drinks/Week Comments Yes 0 (1 standard drink = 0.6 oz pur e alcohol) socially Comments Unknown Sex and Gender Information Value Date Recorded Sex Assigned at Not on file Legal Sex Female 1:28 AM SOLDERER ASSEMBLY REPAIR Gender Identity Not on file Sexual Orientation Not on file documented as of this encounter Plan of Treatment Not on file documented as of this encounter Procedures Procedure Name Priority Date/Time Associated Diagnosis Comments BREAST IMAGING OUTSIDE REFERENCE Routine 05/31/2019 2:11 PM SOLDERER ASSEMBLY REPAIR Diagnosis unknown documented in this encounter Results * Breast Imaging Outside Reference (05/31/2019 2:11 PM SOLDERER ASSEMBLY REPAIR) Narrative RAD_PACS[facility] - 05/31/2019 2:11 PM SOLDERER ASSEMBLY REPAIR This order has been auto-finalized and does not contain a result. Ema Guo MD IMG MAMMO PROCEDURES Fin al Result RAD_PACS[facility] documented in this encounter Visit Diagnoses Not on filedocumented in this encounter Care Teams Regulatory Affairs Director Relationship Specialty Start Date End Date Luigi Jeffries MD [address] [id number] PCP - General 04/03/10 documented as of this encounter
--- OUTSIDE RECORDS SUMMARY | 2024-07-17 17:22 | XMS_ITS | Encounter Summary ---
Author Organization [facility] Healthcare Address [address] [place] [address] Care Team Providers Care Sewing Demonstrator Name Role Phone Luigi Jeffries MD Primary Care Provider [phone] Encounter Details Date Type Department Care Team (Late st Contact Info) Description 05/31/2019 2:30 PM ELECTRODE CLEANER Ancillary Procedure [facility] Outside Films Ema Guo MD [address] [facility] [address] [place], [place] [id number] Social History Tobacco Use Types Packs/Day Years Used Date Smoking Tobacco: Never Smokeless Tobacco: Never Alcohol Use Standard Drinks/Week Comments Yes 0 (1 standard drink = 0.6 oz pur e alcohol) socially Comments Unknown Sex and Gender Information Value Date Recorded Sex Assigned at Not on file Legal Sex Female 1:28 AM ELECTRODE CLEANER Gender Identity Not on file Sexual Orientation Not on file documented as of this encounter Plan of Treatment Not on file documented as of this encounter Procedures Procedure Name Priority Date/Time Associated Diagnosis Comments BREAST IMAGING OUTSIDE REFERENCE Routine 05/31/2019 2:11 PM ELECTRODE CLEANER Diagnosis unknown documented in this encounter Results * Breast Imaging Outside Reference (05/31/2019 2:11 PM ELECTRODE CLEANER) Narrative RAD_PACS[facility] - 05/31/2019 2:11 PM ELECTRODE CLEANER This order has been auto-finalized and does not contain a result. Ema Guo MD IMG MAMMO PROCEDURES Fin al Result [facility]_PACS[facility] documented in this encounter Visit Diagnoses Not on filedocumented in this encounter Care Teams Sewing Demonstrator Relationship Specialty Start Date End Date Luigi Jeffries MD [address] [id number] PCP - General 04/03/10 documented as of this encounter
--- OUTSIDE RECORDS SUMMARY | 2024-07-17 17:22 | XMS_ITS | Referral Summary ---
Author Organization [facility] Medical [facility] [address] Address [address] [place] [address] Care Team Providers Care Field Service Engineer Name Role Phone Luigi Jeffries MD Primary Care Provider [phone] Allergies No known active allergies Medications nabumetone [...] Noted Date Diagnosed Date Abnormal mammogram 05/30/2019 Social History Tobacco Use Types Packs/Day Years Used Date Smoking Tobacco: Never Smokeless Tobacco: Never Alcohol Use Standard Drinks/Week Comments Yes 0 (1 standard drink = 0.6 oz pur e alcohol) socially Comments Unknown Sex and Gender Information Value Date Recorded Sex Assigned at Not on file Legal Sex Female 1:28 AM FINISH INSPECTOR Gender Identity Not on file Sexual Orientation Not on file Last Filed Vital Signs Vital Sign Reading Time Taken Comments Blood Pressure - - Pulse - - Temperature - - Respiratory Rate - - Oxygen Saturation - - Inhaled Oxygen Concentration - - Weight 86.9 kg (191 lb 8 oz) 05/31/2019 9:52 AM FINISH INSPECTOR Height 164.5 cm (5' 4.76 ) 05/31/2019 9:52 AM CS T Body Mass Index 32.1 05/31/2019 9:52 AM FINISH INSPECTOR Plan of Treatment Not on file Insurance [employer]ESS BLUE ACCESS OOS Care Teams Field Service Engineer Relationship Specialty Start Date End Date Luigi Jeffries MD [address] [place] [address] PCP - General 04/03/10
--- OUTSIDE RECORDS SUMMARY | 2024-07-17 17:22 | XMS_ITS | Encounter Summary ---
Author Organization [facility] Healthcare Address [address] [place] [address] Care Team Providers Care Reel Assembler Name Role Phone Luigi Jeffries MD Primary Care Provider [phone] Reason for Referral * Diagnostic Imaging (Routine) - Closed Specialty Diagnoses / Procedures Referred By Moses clark Referred To Contact Diagnoses Screening mammogram, encounter for Procedures Screening Mammogram Bilateral W Justin Screening Mammogram, Self [address] [address] Referral ID Status Reason Start Date Expiration Date Visits Re quested Visits Authorized [id number] Closed 05/12/2020 06/11/2021 1 1 E PICKER Reason for Visit * Diagnostic Imaging (Routine) - Closed Specialty Diagnoses / Procedures Referred By Moses clark Referred To Contact Diagnoses Screening mammogram, encounter for Procedures Screening Mammogram Bilateral W Justin Screening Mammogram, Self [address] [address] Referral ID Status Reason Start Date Expiration Date Visits Re quested Visits Authorized [id number] Closed 05/12/2020 06/11/2021 1 1 Encounter Details Date Type Department Care Team (Latest Contact Info) Description 07/03/2020 12:35 PM WASTE PICKER - 07/03/2020 11:59 PM WASTE PICKER Hospital Encounter [facility] Imaging [address] [place] [address] [phone] Screening Mammogram, Self Screening mammogram, encounter for Discharge Disposition: Discharge to home or self care Social History Tobacco Use Types Packs/Day Years Used Date Smoking Tobacco: Never Smokeless Tobacco: Never Alcohol Use Standard Drinks/Week Comments Yes 0 (1 standard drink = 0.6 oz pur e alcohol) socially Comments Unknown Sex and Gender Information Value Date Recorded Sex Assigned at Not on file Legal Sex Female 1:28 AM WASTE PICKER Gender Identity Not on file Sexual Orientation Not on file documented as of this encounter Medications at Time of Discharge leflunomide (ARAVA) 20 mg tabletIndication s:Rheumatoid Arthritis Take 20 mg by mouth daily 3 tabs once weekly nabumetone (RELAFEN) 500 mg tablet Take 500 mg by mouth 2 (two) times a day risedronate (ACTONEL) 35 mg tablet Take 35 mg by mouth every 7 days with water on empty stomach, nothing by mouth or lie down for next 30 minutes. tazarotene (AVAGE) 0.1 % cream Apply topically nightly Weekly documented as of this encounter Discharge Disposition Disposition Code Departure Means Destination Discharge to home or self care documented in this encounter Plan of Treatment Not on file documented as of this encounter Procedures Procedure Name Priority Date/Time Associated Diagnosis Comments SCREENING MAMMOGRAM BILATERAL W JUSTIN Schedule Routine, Read Routine (OP Routine) 07/03/2020 1:20 PM WASTE PICKER Screening mammogram, encounter for documented in this encounter Results * Screening Mammogram Bilateral W Justin (07/03/2020 1:20 PM WASTE PICKER) Anatomical Region Laterality Modality Breast Bilateral Mammography 07/03/2020 Impressions 07/03/2020 3:20 PM WASTE PICKER There is no mammographic evidence of malignancy. A return to screening mammogram in 1 year is recommended. BI-RADS Category 1: Negative Narrative 07/03/2020 3:20 PM WASTE PICKER EXAM: ??Bilateral Digital Screening Mammogram With Tomosynthesis - 07/03/2020 HISTORY: Patient is a 54 year old female and is seen for screening. FILMS COMPARED: The present examination has been compared to prior imaging studies performed at on 12/04/2016, 04/22/2019 and 05/10/2019. MAMMOGRAM FINDINGS: Bilateral CC tomosynthesis and C-view images, bilateral MLO tomosynthesis and C-view images were obtained. There are scattered fibroglandular densities. There are no suspicious masses, calcifications or other abnormalities. Digital breast tomosynthesis was performed and reviewed as a part of this examination. Procedure Note Carley Vaca MD - 07/03/2020 EXAM: Bilateral Digital Screening Mammogram With Tomosynthesis - 07/03/2020 HISTORY: Patient is a 54 year old female and is seen for screening. FILMS COMPARED: The present examination has been compared to prior imaging studies performed at on 12/04/2016, 04/22/2019 and05/10/2019. MAMMOGRAM FINDINGS: Bilateral CC tomosynthesis and C-view images, bilateral MLOtomosynthesis and C-view images were obtained. There are scattered fibroglandular densities. There are no suspicious masses, calcifications or other abnormalities. Digital breast tomosynthesis was performed and reviewed as a part ofthis examination. IMPRESSION: There is no mammographic evidence of malignancy. A return to screening mammogram in 1 year is recommended. BI-RADS Category 1: Negative us Self Screening Mammogram IMG MAMMO PROCEDURES Fi nal Result documented in this encounter Visit Diagnoses Diagnosis Screening mammogram, encounter for documented in this encounter Care Teams Reel Assembler Relationship Specialty Start Date End Date Luigi Jeffries MD [address] [place] [address] PCP - General 04/03/10 documented as of this encounter
--- OUTSIDE RECORDS SUMMARY | 2024-07-17 17:22 | XMS_ITS | Encounter Summary ---
Author Organization [facility] Healthcare Address [address] [place] [address] Care Team Providers Care Sales Engineer Account Manager Name Role Phone Luigi Jeffries MD Primary Care Provider [phone] Reason for Referral * Diagnostic Imaging (Routine) - Closed Specialty Diagnoses / Procedures Referred By Moses clark Referred To Contact Diagnoses Other abnormal and inconclusive findings on diagnostic imaging of breast Procedures US Breast Right Limited Ema Guo MD Phone: tel: fax: [address] [address] Referral ID Status Reason Start Date Expiration Date Visits Re quested Visits Authorized [id number] Closed 06/07/2019 12/16/2020 1 1 TATION INSPECTOR Reason for Visit * Diagnostic Imaging (Routine) - Closed Specialty Diagnoses / Procedures Referred By Moses clark Referred To Contact Diagnoses Other abnormal and inconclusive findings on diagnostic imaging of breast Procedures US Breast Right Limited Ema Guo MD Phone: tel: fax: [address] [address] Referral ID Status Reason Start Date Expiration Date Visits Re quested Visits Authorized [id number] Closed 06/07/2019 12/16/2020 1 1 Encounter Details Date Type Department Care Team (Latest Contact Info) Description 06/07/2019 12:15 PM SUBSTATION INSPECTOR - 06/07/2019 11:59 PM SUBSTATION INSPECTOR Hospital Encounter [facility] Imaging [address] [place] [id number] Ema Guo MD [address] [place] [address] , [facility] Rad Other abnormal and inconclusive findings on diagnostic imaging of breast Discharge Disposition: Discharge to home or self care Social History Tobacco Use Types Packs/Day Years Used Date Smoking Tobacco: Never Smokeless Tobacco: Never Alcohol Use Standard Drinks/Week Comments Yes 0 (1 standard drink = 0.6 oz pur e alcohol) socially Comments Unknown Sex and Gender Information Value Date Recorded Sex Assigned at Not on file Legal Sex Female 1:28 AM SUBSTATION INSPECTOR Gender Identity Not on file Sexual [...] Procedure Name Priority Date/Time Associated Diagnosis Comments US BREAST RIGHT LIMITED Schedule Routine, Read Routine (OP Routine) 06/07/2019 12:37 PM SUBSTATION INSPECTOR Other abnormal and inconclusive findings on diagnostic imaging of breast documented in this encounter Results * US Breast Right Limited (06/07/2019 12:37 PM SUBSTATION INSPECTOR) Anatomical Region Laterality Modality Breast Right Ultrasound 06/07/2019 Impressions 06/07/2019 1:42 PM SUBSTATION INSPECTOR There is no evidence of malignancy. A return to screening mammogram in 10 months is recommended. BI-RADS Category 1: Negative Narrative 06/07/2019 1:42 PM SUBSTATION INSPECTOR EXAM: ??Right Breast Ultrasound - 06/07/2019 HISTORY: Patient is a 53 year old female and is seen for diagnostic evaluation of abnormality seen on prior outside mammogram. FILMS COMPARED: The present examination has been compared to prior imaging studies performed at [facility] on 12/04/2016, 04/22/2019 and 05/10/2019. ULTRASOUND FINDINGS: Sonography was performed in the right breast in the inner region by the radiologist and technologist. There is no evidence of malignancy. Ultrasound in this area demonstrates benign appearing breast tissue. ??No suspicious solid or cystic lesion is seen. Procedure Note Aline Aburto MD - 06/07/2019 EXAM: Right Breast Ultrasound - 06/07/2019 HISTORY: Patient is a 53 year old female and is seen for diagnostic evaluation of abnormality seen on prior outside mammogram. FILMS COMPARED: The present examination has been compared to prior imaging studies performed at [facility] on 12/04/2016, 04/22/2019 and05/10/2019. ULTRASOUND FINDINGS: Sonography was performed in the right breast in the inner region by the radiologist and technologist. There is no evidence of malignancy. Ultrasound in this area demonstrates benign appearing breast tissue. No suspicious solid or cystic lesion is seen. IMPRESSION: There is no evidence of malignancy. A return to screening mammogram in 10 months is recommended. BI-RADS Category 1: Negative us Ema Guo MD IMG MAMMO PROCEDURES Fin al Result documented in this encounter Visit Diagnoses Diagnosis Other abnormal and inconclusive findings on diagnostic imaging of breast documented in this encounter Care Teams Sales Engineer Account Manager Relationship Specialty Start Date End Date Luigi Jeffries MD [address] [place] [address] PCP - General 04/03/10 documented as of this encounter
--- OUTSIDE RECORDS SUMMARY | 2024-07-17 17:24 | XMS_ITS | Encounter Summary ---
Author Organization [facility] Address [address] [place] [address] Phone Care Team Providers Care Pharmacy Laboratory Technician Name Role Phone Luigi Jeffries MD Primary Care Provider [phone] Reason for Visit * Reason Comments Follow-up * Consultation (Routine) - Closed Specialty Diagnoses / Procedures Referred By Contact Referred To Contact Surgery / Surgical Oncology Diagnoses Breast mass, right Luigi Jeffries MD [address] [place] [address] Phone: tel: fax: [facility] (All Locations) Referral ID Status Reason Start Date Expiration Date V isits Requested Visits Authorized [id number] Closed Specialty Services Required 05/12/2019 11/20/[phone] Encounter Details Date Type Department Care Team (Late st Contact Info) Description 05/31/2019 10:00 AM SYSTEMS SECURITY ANALYST Office Visit [facility] [address] [place] [id number] Ema Guo MD [address] [place] [address] Abnormal mammogram (Primary Dx) Social History Tobacco Use Types Packs/Day Years Used Date Smoking Tobacco: Never Smokeless Tobacco: Never Alcohol Use Standard Drinks/Week Comments Yes 0 (1 standard drink = 0.6 oz pur e alcohol) socially Comments Unknown Sex and Gender Information Value Date Recorded Sex Assigned at Not on file Legal Sex Female 1:28 AM SYSTEMS SECURITY ANALYST Gender Identity Not on file Sexual Orientation Not on file documented as of this encounter Last Filed Vital Signs Vital Sign Reading Time Taken Comments Blood Pressure - - Pulse - - Temperature - - Respiratory Rate - - Oxygen Saturation - - Inhaled Oxygen Concentration - - Weight 86.9 kg (191 lb 8 oz) 05/31/2019 9:52 AM SYSTEMS SECURITY ANALYST Height 164.5 cm (5' 4.76 ) 05/31/2019 9:52 AM CS T Body Mass Index 32.1 05/31/2019 9:52 AM SYSTEMS SECURITY ANALYST documented in this encounter Progress Notes * Ema Guo MD - 05/31/2019 10:00 AM CST DATE: 05/31/2019 Luigi Jeffries MD RE: Pablo Alvarado : 1965 ([address] Dr[address] Jeffries, I had the pleasure of seeing Pablo lAvarado . Thank you for requesting that I see her. CHIEF COMPLAINT: Abnormal mammogram, Category 3 HISTORY OF PRESENT ILLNESS: Pablo had a routine screening mammogram performed showing and right breast asymmetry. The screening mammogram was performed in [facility] and a subsequent right diagnostic mammogram with [place] over showed that the patient had scattered fibroglandular densities but there was a focal asymmetry medially in the posterior 3rd of the breast on the cc view only. Thiswas somewhat less apparent on spot compression views but still evident. An ultrasound showed that 8cm from the nipple there was an oval hypoechoic mass measuring 5 x 4 x 3 mm. This was given a BI-RADS category 3 with six-month follow-up recommended the patient is here for opinion. She has no mass on clinical or self-breast exam no change in contour nipple discharge. COMPLIANCE MANAGER HISTORY: Menarche at age 11, 1st at 19 she is 5 para 4. She had a hysterectomy with oophorectomy performed at age 31 for endometriosis. She has never used control or hormone replacement therapy. PAST SURGICAL HISTORY: Past Surgical History: Procedure Laterality Date ??? HYSTERECTOMY 1996 Hysterectomy ??? HYSTERECTOMY 1996 ??? OTHER SURGICAL HISTORY 2010 laparoscopic cholecystectomy 04/06 MEDICATIONS: Prior to Admission medications Not on File ALLERGIES: No Known Allergies SOCIAL HISTORY: Social History Socioeconomic History ??? Marital status: Spouse name: Not on file ??? Number of children: Not on file ??? Years of education: Not on file ??? Highest education level: Not on file Occupational History ??? Not on file Social Needs ??? Financial resource strain: Not on file ??? Food insecurity: Worry: Not on file Inability: Not on file ??? Transportation needs: Medical: Not on file Non-medical: Not on file Tobacco Use ??? Smoking status: Never Smoker ??? Smokeless tobacco: Never Used Substance and Sexual Activity ??? Alcohol use: Yes Comment: socially ??? Drug use: Not on file ??? Sexual activity: Not on file Lifestyle ??? Physical activity: Days per week: Not on file Minutes per session: Not on file ??? Stress: Not on file Relationships ??? Social connections: Talks on phone: Not on file Gets together: Not on file Attends confucianism service: Not on file Active member of club or organization: Not on file Attends meetings of clubs or organizations: Not on file Relationship status: Not on file ??? Intimate partner violence: Fear of current or ex partner: Not on file Emotionally abused: Not on file Physically abused: Not on file Forced sexual activity: Not on file Other Topics Concern ??? Not on file Social History Narrative ??? Not on file REVIEW OF SYSTEMS: Review of systems is on the attached data sheet, signed and dated by me, and reviewed with the patient. The review of systems is significant for reflux, arthritis related to psoriasis, osteoporosis, and all other systems are normal or negative. FAMILY HISTORY: Family History Problem Relation Age of Onset ??? Melanoma Father Melanoma; ??? Diabetes Father Diabetes mellitus; ??? Hodgkin's lymphoma Brother Hodgkin's disease; ??? Non-Hodgkin's Lymphoma Brother ??? Kidney cancer Mother ??? Throat cancer Other ??? Melanoma Daughter ??? Prostate cancer Other VITAL SIGNS: Vitals Ht 164.5 cm (5' 4.76 ) Wt 86.9 kg (191 lb 8 oz) BMI 32.10 kg/m?? Body mass index is 32.1 kg/m??. PHYSICAL EXAMINATION: General: Well-developed, well-nourished female in no acute distress. The patient???s affect and behavior are appropriate for today???s visit. Skin: No concerning lesions or skin changes noted on the face, neck, trunk or extremities. Eyes: Conjunctivae appear normal. Pupils are equal and reactive. Extraocular movements are intact. The sclerae are not injected and show no jaundice. Nose, Mouth and Throat: Mucosal membranes are normal in color with no lesions or irritation noted. Dentition is normal. Neck: There are no concerning neck masses. The thyroid is normal on palpation. Heart/Cardiovascular: Heart rate is regular rate . No unusual jugular venous distention. Lungs: There is normal effort on both inspiration and expiration. Chest: The chest wall is clear with no lesions or implanted devices. Lymphatic System: No concerning cervical, supraclavicular or axillary lymphadenopathy. Abdomen: Soft, nontender with no hernia, organomegaly or mass. Renal: There is no costovertebral angle tenderness on palpation. Musculoskeletal: There is no evidence of rib, long bone, or spine pain. Extremities: Good range of motion in both arms and legs. There is no lymphedema of either arm. No edema of legs or feet. No concerning lesions on the extremities. Neurological: The patient's gait is normal. The patient is oriented to time, place and person with no obvious memory problems. There are no focal neurological signs. Bilateral breast exam: Left breast: The left breast is normal in contour with no obvious skin changes, dimpling, or retraction. There is no palpable dominant mass or density within the left breast. The nipple and areola are normal without erosion, edema or ulceration. There is no obvious nipple discharge. Examination of the axillary tail and axillary contents shows no concerning mass or adenopathy. Right breast: The right breast is normal in contour with no obvious skin changes, dimpling, or retraction. There is no palpable dominant mass or density within the right breast. The nipple and areolaare normal without erosion, edema or ulceration. There is no obvious nipple discharge. Examination of the axillary tail and axillary contents shows no concerning mass or adenopathy. IMAGING: I have reviewed the report and independently reviewed the images from the [facility].The imaging showed a small density in the posterior right breast which is still evident on the diagnostic film. We were unable to pull up her ultrasound here. I have personally reviewed these films. I spoke with Pablo and I explained the nature of a category 3 mammogram and that while the radiologist felt comfortable that this was likely benign, I would be more comfortable since this is in theposterior breast and still present on the diagnostic imaging, if we were able to repeat her ultrasound. If indeed this is a benign process by imaging and a six-month follow-up was recommended then we will confirm the outside reading. On the other hand there is a possibility that they will recommenda biopsy and I have explained this to her. We offered her an appointment today but she and her would like to come back next Friday and we will arrange for this. IMPRESSION: 1. Category 3 mammogram with 5 mm hypoechoic density in the right posterior medial breast RECOMMENDATIONS: 1. Right diagnostic imaging with ultrasound next Friday and visit Many thanks for the opportunity to follow her with you. Please don???t hesitate to give me a call should you have any questions. Very truly yours, Ema Guo MD Professor, Surgical Oncology EMS SECURITY ANALYST documented in this encounter Plan of Treatment Not on file documented as of this encounter Visit Diagnoses Diagnosis Abnormal mammogram- Primary Abnormal mammogram, unspecified documented in this encounter Historical Medications * This list may reflect changes made after this encounter. tazarotene (AVAGE) 0.1 % cream Apply topically nightly Weekly risedronate (ACTONEL) 35 mg tablet Take 35 mg by mouth every 7 days with water on empty stomach, nothing by mouth or lie down for next 30 minutes. leflunomide (ARAVA) 20 mg tabletIndication s:Rheumatoid Arthritis Take 20 mg by mouth daily 3 tabs once weekly nabumetone (RELAFEN) 500 mg tablet Take 500 mg by mouth 2 (two) times a day added in this encounter Care Teams Pharmacy Laboratory Technician Relationship Specialty Start Date End Date Luigi Jeffries MD [address] [place] [address] PCP - General 04/03/10 documented as of this encounter
--- OUTSIDE RECORDS SUMMARY | 2024-07-17 17:24 | XMS_ITS | Encounter Summary ---
Author Organization [facility] Healthcare Address [address] [place] [address] Care Team Providers Care Thickener Operator Name Role Phone Luigi Jeffries MD Primary Care Provider [phone] Encounter Details Date Type Department Care Team (Latest Contact Info) Description 04/18/2010 12:42 PM CDT - 04/18/2010 11:59 PM CDT Hospital Encounter [facility] Cholesterolosis of gallbladder Social History Tobacco Use Types Packs/Day Years Used Date Smoking Tobacco: Never Assessed Comments Unknown Sex and Gender Information Value Date Recorded Sex Assigned at Not on file Legal Sex Female 1:28 AM ARMATURE REPAIRER Gender Identity Not on file Sexual Orientation Not on file documented as of this encounter Plan of Treatment Not on file documented as of this encounter Visit Diagnoses Diagnosis Cholesterolosis of gallbladder documented in this encounter Care Teams Thickener Operator Relationship Specialty Start Date End Date Luigi Jeffries MD [address] [place] [address] PCP - General 04/03/10 documented as of this encounter
--- OUTSIDE RECORDS SUMMARY | 2024-07-17 17:24 | XMS_ITS | Encounter Summary ---
Author Organization [facility] Healthcare Address [address] [place] [address] Care Team Providers Care Vamp Presser Name Role Phone Luigi Jeffries MD Primary Care Provider [phone] Encounter Details Date Type Department Care Team (Late st Contact Info) Description 04/17/2010 8:47 AM CDT - 04/17/2010 11:59 PM CDT Hospital Encounter [place] [address] [facility] [address] [place] [address] Pre-operative examination; Calculus of gallbladder Social History Tobacco Use Types Packs/Day Years Used Date Smoking Tobacco: Never Assessed Comments Unknown Sex and Gender Information Value Date Recorded Sex Assigned at Not on file 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
--- OUTSIDE RECORDS SUMMARY | 2024-07-17 17:24 | XMS_ITS | Encounter Summary ---
Author Organization [facility] Healthcare Address [address] [place] [address] Care Team Providers Care Labor Employment Associate Name Role Phone Luigi Jeffries MD Primary Care Provider [phone] Encounter Details Date Type Department Care Team (Late st Contact Info) Description 04/18/2010 10:12 AM CDT - 04/19/2010 5:14 PM CDT Hospital Encounter [facility] [place] [address] [facility] [address] [place] [address] Obstruction of gallbladder; Other psoriasis Social History Tobacco Use Types Packs/Day Years Used Date Smoking Tobacco: Never Assessed Comments Unknown Sex and Gender Information Value Date Recorded Sex Assigned at Not on file 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
== END 2024-07-12 07:26 | disposition home or self-care (01) ==
LOC: CHSIMG 07:27
PROVIDERS: PCP Internal Medicine; Visit Provider Internal Medicine
DX: R74.01 Elevation of levels of liver transaminase levels (principal); K76.0 Fatty (change of) liver, not elsewhere classified
CPT/HCPCS: 76705

== ENCOUNTER 2025-05-02 07:49 | Outpatient (CLI) | payer BC, SELFPAY ==
--- NOTE | ~2025-05-02 | MM_ITS ---
EXAMINATION: MM screening radha BI w danita HISTORY: Screening TECHNIQUE: Craniocaudal and mediolateral oblique 3-D tomosynthesis images were obtained and synthetic 2-D images were generated. CAD analysis was submitted and interpreted. COMPARISON: Comparison to multiple prior studies sequentially, with oldest reviewed study dated , 04/22/2019 BREAST PARENCHYMAL COMPOSITION: The breasts are almost entirely fatty. FINDINGS: There is no evidence of suspicious mass, calcification, or architectural distortion to suggest malignancy in either breast. IMPRESSION: 1. No mammographic evidence of malignancy. 2. Recommend routine screening mammography in one year. BI-RADS Category 1: Negative Reviewed, dictated and finalized at location B.
--- OUTSIDE RECORDS SUMMARY | 2025-05-02 07:54 | XMS_ITS | Clinical Summary ---
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 Gender Identity Not on file Sexual Orientation Not on file Obstetrics History Last Filed Vital Signs Vital Sign Reading Time Taken Comments Blood Pressure - - Pulse - - Temperature - - Respiratory Rate - - Oxygen Saturation - - Inhaled Oxygen Concentration - - Weight 86.9 kg (191 lb 8 oz) 05/31/2019 9:52 AM RESERVATIONS AGENT Height 164.5 cm (5' 4.76) 05/31/2019 9:52 AM CS T Body Mass Index 32.1 05/31/2019 9:52 AM RESERVATIONS AGENT Plan of Treatment Not on file Insurance [employer] O[employer] Care Teams Calf Skinner Relationship Specialty Start Date End Date Luigi Jeffries MD [address] [place] [address] PCP - General 04/03/10
== END 2025-05-02 07:50 | disposition home or self-care (01) ==
LOC: CHSIMG 07:50
PROVIDERS: PCP Internal Medicine; Visit Provider Internal Medicine
DX: Z12.31 Encounter for screening mammogram for malignant neoplasm of breast (principal)
CPT/HCPCS: 77063; 77067

== ENCOUNTER 2025-07-14 11:45 | Outpatient (CLI) | payer BC, SELFPAY ==
--- NOTE | ~2025-07-14 | DEXA_ITS ---
Bone Density Report Name: ARTEM ANTON Age: 59 Sex: Female Ethnicity: White Date of : 1965 Indication: postmenopausal; screening for osteoporosis; hysterectomy; rheumatoid arthritis; Referring Provider: Luigi Jeffries Study: Bone densitometry was performed. Exam Date: July 14, 2025 Accession number: [id number] Bone Density: Region BMD T-score Z-score Classification AP Spine(L1-L4) 0.932 -1.0 0.4 Normal Femoral Neck (Left) 0.714 -1.2 0.1 Osteopenia Total Hip (Left) 0.815 -1.0 -0.1 Normal Femoral Neck (Right) 0.716 -1.2 0.1 Osteopenia Total Hip (Right) 0.879 -0.5 0.5 Normal Femoral Neck Mean 0.715 -1.2 0.1 Osteopenia Total Hip Mean 0.847 -0.8 0.2 Normal World Health Organization criteria for BMD impression classify patients as: Normal (T-score at or above -1.0), Osteopenia (T-score between -1.0 and -2.5), or Osteoporosis (T-score at or below -2.5). 10-year Fracture Risk(1): Major Osteoporotic Fracture 9.4% Hip Fracture 0.7% Reported Risk Factors: [place] (), Neck BMD=0.714, BMI=29.1, rheumatoid arthritis (1) FRAX(R) Version 3.08. Fracture probability calculated for an untreated patient. Fracture probability may be lower if the patient has received treatment. Clinical Information Provided by Patient: Has rheumatoid arthritis Has used the following medications: Actonel (i.e. risedronate), Vitamin D, Calcium Has the following medical conditions: Hysterectomy Patient maximum height was 65 Menopause Age: 49 Drinks caffeinated beverages Onset of menses at age 11 Number of children 4 Impression: The patient has low bone mass, based on the Left Femoral Neck T-score. Discussion: BONE DENSITY IS LOW AT ONE OR MORE SKELETAL SITES. This patient's lowest T-score is low at one or more skeletal sites. It meets the World Health Organization's (WHO) criteria for ?low bone mass? (T-score between -1.0 and -2.5). The patient's 10-year risk of fracture as calculated by FRAX is less than the threshold where pharmacological therapy is recommended by the National Osteoporosis Foundation (NOF). However, all treatment decisions require clinical judgment and consideration of individual patient factors, including patient preferences, comorbidities, previous drug use, risk factors not captured in the FRAX model (e.g., frailty, falls, vitamin D deficiency, increased bone turnover, interval significant decline in bone density) and possible under or overestimation of fracture risk by FRAX. The patient should follow a healthful lifestyle (good nutrition with adequate calcium and vitamin D, and appropriate weight-bearing exercise). Follow-Up: Consider repeating this study in 2 to 3 years to reassess this patient's status, or sooner if there is some new clinical indication. Reported by: AKILA on 07/14/2025 12:08:00 PM. Reviewed, dictated and finalized at location A.
--- OUTSIDE RECORDS SUMMARY | 2025-07-14 12:56 | XMS_ITS | Clinical Summary ---
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 Gender Identity Not on file Sexual Orientation Not on file Last Filed Vital Signs Vital Sign Reading Time Taken Comments Blood Pressure - - Pulse - - Temperature - - Respiratory Rate - - Oxygen Saturation - - Inhaled Oxygen Concentration - - Weight 86.9 kg (191 lb 8 oz) 05/31/2019 9:52 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
== END 2025-07-14 11:46 | disposition home or self-care (01) ==
LOC: CHSIMG 11:47
PROVIDERS: PCP Internal Medicine; Visit Provider Internal Medicine
DX: Z78.0 Asymptomatic menopausal state (principal); M85.89 Other specified disorders of bone density and structure, multiple sites
CPT/HCPCS: 77080